=== PATIENT | male | born 1945 | race Caucasian/White ===

== ENCOUNTER 2017-03-26 13:00 | Emergency (ER) | payer MEDICARE, OTHER ==
[~2017-03-26] VITALS: Ht 177.8 cm; Wt 95.9 kg
[2017-03-26 13:03] VITALS: BP 202/91; PULSE 79; TEMP 97.6
== END 2017-03-26 14:31 | disposition left against medical advice (07) ==
LOC: COL.ER 13:00
DX: M25.551 Pain in right hip (principal); M25.552 Pain in left hip; W18.39XA Other fall on same level, initial encounter

== ENCOUNTER 2020-08-22 14:07 | Inpatient (IN) | payer OTHER ==
[~2020-08-22] VITALS: Ht 180.3 cm; Wt 82.2 kg
[2020-08-22] VITALS (195 sets, daily range): BP systolic 115; BP diastolic 59; PULSE 125; TEMP 97.8; O2SAT 84–98
[2020-08-22 14:36] LABS: BASO % 0.2 % (0.0-2.0); GRAN # 3.1 (1.4-6.5); GRAN % 75.8 % (42.2-75.2); HEMATOCRIT 40.5 % (42.0-52.0); HEMOGLOBIN 13.7 g/dl (13.5-18.0); LYMPH # 0.7 (1.2-3.4); LYMPH % 17.6 % (20.0-51.0); MEAN CELL VOLUME 85 fl (80.0-100.0); MEAN CORPUSCULAR HEMOGLOBIN 29 pg (27.0-31.0); MEAN CORPUSCULAR HGB CONC 34 g/dl (33.0-37.0); MONO # 0.3 (0.1-0.6); MONO % 6.2 % (1.7-9.3); PLATELET COUNT 141 K/mm3 (130-400); RED BLOOD COUNT 4.76 M/mm3 (4.20-5.60); REDCELL DISTRIBUTION WIDTH-CV 13.9 % (11.5-14.5)
[2020-08-22 14:43] LABS: ALBUMIN 3.9 gm/dL (3.5-5.0); BILIRUBIN,TOTAL 0.8 mg/dL (0.0-1.0); CALCIUM 8.3 mg/dL (8.4-10.2); CREATININE, serum 0.9 (0.66-1.25); POTASSIUM 3.8 mmol/L (3.4-5.0); TOTAL PROTEIN 7.3 gm/dL (6.4-8.2)
[2020-08-22 14:58] LABS: TROPONIN-I 0.056 ng/mL (0.000-0.035)
[2020-08-22 15:13] LABS: TSH w REFLEX 0.306 uIU/mL (0.465-4.680)
[2020-08-22] MEDS ORDERED: XANAX 1MG1 MG PO ×2 (16:17)
[2020-08-22] MEDS ORDERED: ZOCOR 80MG80 MG PO (16:20)
[2020-08-22] MEDS ORDERED: GLUCOTROL10 MG PO (16:20)
[2020-08-22] MEDS ORDERED: TOPROL XL100 MG PO (16:21)
[2020-08-22] MEDS ORDERED: PLAVIX 75MG TAB75 MG PO (16:21)
[2020-08-22] MEDS ORDERED: SYNTHROID0.112 MG/T PO (16:28)
[2020-08-22] MEDS ORDERED: ZESTRIL40 MG PO (16:29)
[2020-08-22] MEDS ORDERED: SURFAK 240240 MG/CAP PO (16:29)
[2020-08-22] MEDS ORDERED: GLUCOPHAGE1000 MG PO (16:30)
[2020-08-22] MEDS ORDERED: ASPIRIN 81M81 MG/TA2 PO (16:30)
[2020-08-22 17:18] LABS: COLLECTION METHOD CLEAN CATCH
[2020-08-22 17:23] LABS: MUCOUS Present /lpf; PH 5 (5-8); SQUAMOUS EPITHELIAL None Seen /hpf; URINE APPEARANCE Hazy; URINE BACTERIA Rare /hpf; URINE BILIRUBIN Negative (NEGATIVE); URINE BLOOD 1+ (NEGATIVE); URINE COLOR Yellow; URINE GLUCOSE 3+ (NEGATIVE); URINE KETONE 1+ (NEGATIVE); URINE LEUKOCYTE ESTERASE Negative (NEGATIVE); URINE NITRATE Negative (NEGATIVE); URINE PROTEIN(semi-quant) 2+ (NEGATIVE); URINE RBC 0-2 /hpf; URINE UROBILINOGEN Negative (NEGATIVE)
--- NOTE | 2020-08-22 17:31 | NUR ---
PT ADMITTED FROM ED WITH COVID AND AFIB. PT TRANSFERED TO BED. PTSHOWING AFIB 120, OTHER VSS. PT IS AXOX4 BUT VERY [place]ICH[place]. PT PLACED IN DROPLET/CONTACT ISOLATION. PT ORIENTED TO ROOM AND FLOOR. WILL CONTINUE TO MONITOR.
[2020-08-22 18:42] LABS: C-REACTIVE PROTEIN 2.5 mg/dL (0.0-0.9)
[2020-08-22 19:06] LABS: TROPONIN-I 0.079 ng/mL (0.000-0.035)
--- NOTE | 2020-08-22 19:15 | NUR ---
Received report from ARUA Fuentes.
--- NOTE | 2020-08-22 21:30 | NUR ---
Patient resting quietly in bed. Continues to receive 2L oxygen via nasal cannula, tolerating well with oxygen saturation > 95%. Patient does not appear labored or short of breath. Denies having any pain or discomfort. HR 115-120s in AFIB. Currently receiving cardizem drip at 15 mg/hr or 15mL/hr. Patient assisted in calling , Tash. No further needs noted at this time.
[2020-08-22] MEDS ORDERED: LOPRESSOR100 MG PO (22:07)
[2020-08-23] VITALS (507 sets, daily range): BP systolic 99–170; BP diastolic 56–98; PULSE 60–102; TEMP 97.1–98.6; O2SAT 70–100
--- NOTE | 2020-08-23 01:31 | NUR ---
Notified by medical records field technicianRaul, that patient converted to sinus rhythm at this time. Proceeded to notify RTKale, to obtain EKG to confirm.
[2020-08-23 06:40] LABS: HEMOGLOBIN 12.3 g/dl (13.5-18.0); MEAN CELL VOLUME 85 fl (80.0-100.0); MEAN CORPUSCULAR HEMOGLOBIN 28 pg (27.0-31.0); MEAN CORPUSCULAR HGB CONC 33 g/dl (33.0-37.0); MEAN PLATELET VOLUME 10.6 fl (7.4-10.4); PLATELET COUNT 124 K/mm3 (130-400); RED BLOOD COUNT 4.33 M/mm3 (4.20-5.60); REDCELL DISTRIBUTION WIDTH-CV 13.7 % (11.5-14.5)
[2020-08-23 06:43] LABS: HEMATOCRIT 36.9 % (42.0-52.0)
--- NOTE | 2020-08-23 07:26 | NUR ---
Report given to AURA Pettit.
[2020-08-23 07:28] LABS: BAND 2 % (0-10); BASOPHIL 1 % (0-2); NEUTROPHILS 68 % (42.0-75.2)
[2020-08-23 07:31] LABS: BURR CELLS 3+; OVALOCYTES 1+; POIKILOCYTOSIS 3+
[2020-08-23 07:32] LABS: LYMPHOCYTE 21 % (20.0-51.0); PLATELET ESTIMATE NORMAL (NORMAL)
[2020-08-23 07:43] LABS: CALCIUM 7.6 mg/dL (8.4-10.2); CREATININE, serum 0.87 (0.66-1.25); POTASSIUM 4.1 mmol/L (3.4-5.0)
[2020-08-23 07:59] LABS: MAGNESIUM 1.9 mg/dL (1.6-2.3)
--- NOTE | 2020-08-23 08:15 | NUR ---
PATIENT FOUND AWAKE AND ALERT IN BED, HARD OF HEARING. PATIENT DENIES ANY PAIN OR NAUSEA. HEART SOUNDS REGULAR, LUNG SOUNDS CLEAR, BOWEL SOUNDS AUDIBLE. URINE IN URINAL DARK MG IN COLOR. IV CARDIZEM INFUSING AT 5MG/HR WITHOUT DIFFICULTY. PATIENT IS NORMAL SINUS AT THIS TIME, VITAL SIGNS STABLE. CALL FREED WITHIN REACH, WILL CONTINUE TO MONITOR. DROPLET CONTACT PRECAUTIONS MAINTAINED.
--- NOTE | 2020-08-23 11:41 | NUR ---
First visit from the research professor of biostatistics. Speech Correction Assistant prayed for patient while standing outside of their door.
--- NOTE | 2020-08-23 11:54 | NUR ---
CARDIZEM DRIP STOPPED PER MD ORDERS. PATIENT CONTINUES TO BE IN NSR. BP 133/74. WILL MONITOR.
--- NOTE | 2020-08-23 12:48 | NUR ---
The patient is COVID positive. VIET attempted to contact the patient's room phone to discuss discharge plan. The patient did not answer. VIET then contacted the patient's daughter, Guerline Wayne (ph#[phone]), to complete intake. Guerline answered and gave her phone to the patient's , Tash. Tash reports that the best way to get ahold of her is to call Guerline's phone. The patient lives in [place] with Tash and Guerline. Tash reports that the patient was independent with ADLs, but since getting COVID, he has been needing help. He does not have any DME. Tash reports that the patient receives primary care from the [facility] and sees a psychiatrist there. She could not recall their name. VIET contacted the [facility]. The recruiter coordinator reports that the patient's primary care provider is Maday Costa on the Red Team. The patient receives his medications from [facility]. Tash reports that the patient also has Medicare, but they would prefer for the ID to be billed. The patient does not have a DPOA-HC. VIET asked the hospitalist for PT/OT to be ordered. SW to continue to follow. *Discharge plan: unknown at this time. Awaiting therapy recs*
--- NOTE | 2020-08-23 13:11 | NUR ---
PATIENT STATES HE WANTS TO LEAVE AMA, DR. PRETTY MADE AWARE, WILL COME SPEAK TO PATIENT.
--- NOTE | 2020-08-23 14:45 | NUR ---
PATIENT SPO2 IN 80'S WHILE ON NC AT 6L. RESPIRATORY MADE AWARE, STATE TO BUMP PATIENT UP TO 10L UNTIL SHE CAN COME WITH AIRVO.
--- NOTE | 2020-08-23 17:15 | NUR ---
PATIENT FOUND WITH AIRVO OFF, SPO2 IN 60'S DUSKY IN COLOR. PATIENT PLACED BACK ON AIRVO. UNABLE TO GET SPO2 ABOVE 80%. RESPIRATORY MADE AWARE TO ADJUST SETTINGS. HOSPITALIST AT BEDSIDE TO CONSULT DR. LUCIO. NEW ORDERS FOR PRECEDEX. WILL CONTINUE TO MONITOR.
--- NOTE | 2020-08-23 17:46 | NUR ---
PRECEDEX STARTED PER MD ORDERS. WILL MONITOR AND ADJUST NEEDED
--- NOTE | 2020-08-23 18:36 | NUR ---
PATIENT NOT ABLE TO MAINTAIN SPO2 WHILE ON AIRVO RESPIRATORY MADE AWARE.
--- NOTE | 2020-08-23 19:00 | NUR ---
RESPIRATORY AT BEDSIDE TO SWITCH TO BIPAP. PATIENT ONLY ABLE TO MAINTAIN SPO2 OF 85% AT THIS TIME.
--- NOTE | 2020-08-23 19:30 | NUR ---
Received report from AURA Pettit. All medications verified and all questions answered. RT at patient bedside putting on bipap for patient. Patient VSS with SPO2 resting at 91% at 100% FIO2 on bipap. Will resume care of patient at this time.
--- NOTE | 2020-08-23 20:00 | NUR ---
Unable to complete suicide risk assessment screen d/t patient prepping for intubation.
[2020-08-23 22:27] LABS: ARTERIAL BLD GAS O2 SATURATION 98.9 % (92-100); ARTERIAL BLD GAS TCO2 CT 22.8; ARTERIAL BLOOD GAS BASE EXCESS -3.6 (-2-2); ARTERIAL BLOOD GAS HCO3 21.6 meq/L (22-26); ARTERIAL BLOOD GAS PCO2 39.6 mmHg (35-45); ARTERIAL BLOOD GAS pH 7.36 (7.35-7.45)
--- NOTE | 2020-08-23 22:30 | NUR ---
This RN called and spoke with PRESTON Torres in regards to patient being placed on bipap with settings of 18/12 at 100% FiO2 and not satting above 91%. PA notified Dr. Velasco of patient condition and stated patient would need to be intubated. PA spoke with family and this RN verified consent with PA for intubation. This RN notified Anesthesia of need for intubation at 193. Began intubation at 1944 and patient was intubated at 1999. VS post intubation were 105/65 BVP, 78HR and 93% O2. CXR verfied placement of ET tube and breath sounds heard bilaterally by this RN and PA. During intubation process patient was given 100mcg of fentanyl, 2mg versed, 120mg of propofol, and 100mg of succs. Anesthesia provider placed ART line starting at 1999 and completed insertion of ART line at 2019. Dr. Joe placed right subclavian triple lumen central line which started at 2019 and was inserted by 2031. Patient was then starting on propofol gtt. During insertion of intubation, ART line, and central line placement BP were being recycled q15 mins. Upon completion of ET tube, central line and ART line pt BP readings were 60s/20s via ART line reading. No bolus' given per Dr. Velasco's order. Patient started on levophed at 2099. Levophed titrated per PA's orders while PA at bedside to increase pressures with MAP > 65. Propofol gtt started at 2029, fentanyl gtt started at 2199. VSS post intubation and administration of levophed, fentanyl and propofol.
[2020-08-24] VITALS (659 sets, daily range): BP systolic 96–181; BP diastolic 45–86; PULSE 32–77; TEMP 96.3–99; O2SAT 77–100
[2020-08-24 01:24] LABS: INR 1.6 (0.8-3.0); PROTHROMBIN TIME 17.3 SECONDS (9.7-12.8)
[2020-08-24 01:56] LABS: HEMATOCRIT 37.1 % (42.0-52.0); HEMOGLOBIN 12.4 g/dl (13.5-18.0); MEAN CELL VOLUME 84 fl (80.0-100.0); MEAN CORPUSCULAR HEMOGLOBIN 28 pg (27.0-31.0); MEAN CORPUSCULAR HGB CONC 33 g/dl (33.0-37.0); MEAN PLATELET VOLUME 10.5 fl (7.4-10.4); PLATELET COUNT 180 K/mm3 (130-400); RED BLOOD COUNT 4.42 M/mm3 (4.20-5.60); REDCELL DISTRIBUTION WIDTH-CV 13.8 % (11.5-14.5)
[2020-08-24 02:15] LABS: BAND 4 % (0-10); LYMPHOCYTE 8 % (20.0-51.0); NEUTROPHILS 81 % (42.0-75.2)
[2020-08-24 02:16] LABS: BURR CELLS 3+; OVALOCYTES 1+; PLATELET ESTIMATE NORMAL (NORMAL)
--- NOTE | 2020-08-24 03:46 | NUR ---
ABG OBTAINED AT 2230 AFTER PT ON VENTILATOR FOR AN HOUR. DUE TO HIGH P02 MAXIM CALLED AT 0047 VENT CHANGES MADE PEEP FROM 15 TO 14 AND FI02 FROM 100% TO 90%. PT TOLERATED CHANGES WELL WITH SP02 AT 100%.
--- NOTE | 2020-08-24 05:15 | NUR ---
Sedation vacation not attempted d/t patient being intubated for less than 24 hours.
[2020-08-24 05:19] LABS: BASO % 0.1 % (0.0-2.0); GRAN % 79.8 % (42.2-75.2); HEMATOCRIT 37.1 % (42.0-52.0); HEMOGLOBIN 12.4 g/dl (13.5-18.0); LYMPH % 13.4 % (20.0-51.0); MEAN CELL VOLUME 84 fl (80.0-100.0); MEAN CORPUSCULAR HEMOGLOBIN 28 pg (27.0-31.0); MEAN CORPUSCULAR HGB CONC 33 g/dl (33.0-37.0); MEAN PLATELET VOLUME 10.7 fl (7.4-10.4); MONO # 0.5 (0.1-0.6); MONO % 6.2 % (1.7-9.3); PLATELET COUNT 183 K/mm3 (130-400); RED BLOOD COUNT 4.43 M/mm3 (4.20-5.60); REDCELL DISTRIBUTION WIDTH-CV 13.9 % (11.5-14.5)
[2020-08-24 05:34] LABS: ARTERIAL BLD GAS O2 SATURATION 98.6 % (92-100); ARTERIAL BLD GAS TCO2 CT 17.2; ARTERIAL BLOOD GAS BASE EXCESS -7.8 (-2-2); ARTERIAL BLOOD GAS HCO3 16.3 meq/L (22-26); ARTERIAL BLOOD GAS PCO2 29.4 mmHg (35-45); ARTERIAL BLOOD GAS pH 7.36 (7.35-7.45)
[2020-08-24 05:35] LABS: ARTERIAL BLOOD GAS PO2 154.1 mmHg (80-100); CALCIUM 7.6 mg/dL (8.4-10.2); CREATININE, serum 0.99 (0.66-1.25)
[2020-08-24 05:44] LABS: C-REACTIVE PROTEIN 1.9 mg/dL (0.0-0.9)
--- NOTE | 2020-08-24 06:03 | NUR ---
PT NOT INTUBATED FOR MORE THAN 24 HOURS THEREFORE NO WEAN TRIAL WAS DONE. PT ON DOCUMENTED SETTINGS BRODY WELL WITH NO DISTRESS NOTED AT THIS TIME
--- NOTE | 2020-08-24 07:00 | NUR ---
PT INTUBATED. PT ON LEVO, PROP, FENT. PT IN ISOLATION. WILL CONITNUE TO TALIB.
[2020-08-24 11:03] LABS: MAGNESIUM 1.9 mg/dL (1.6-2.3); PHOSPHOROUS 3.5 mg/dL (2.5-4.5)
[2020-08-24 11:10] LABS: PRE ALBUMIN 9.1 mg/dL (17.6-36.0)
--- NOTE | 2020-08-24 11:36 | NUR ---
1015- PT BECAME BRADYCARDIC TO 30'S. BP ELEVATED TO 180'S. PULSE STILL PALPABLE. ALL SEDATION STOPPED AND LEVO STOPPED. CALLED AND NOTIFIED. PT'S HR RETURNED TO THE 50-60'S. BP IN THE 120'S. PT WAKES TO VOICE, ABLE TO FOLLOW COMMANDS, BEGAN TO COUGH AGAINST THE VENT. SEDATION RESTARTED AT A LOWER RATE. JAIME CHAVARRIA PAGED AND NOTIFIED OF ABOVE. SHE SPOKE WITH . ORDERS RECEIVED FOR AMIO DRIP. CLARIFIED WITH REGARDING AMIO WITH PT HAVING BRADYCARDIA. DR QUESADA STATES " HE IS OK WITH SR WITH A HEART RATE DOWN TO 30 LONG BP TOLERATES". WILL RUN AMIO DRIP AT 1MG/HR FOR SIX HOURS THEN DECREASE TO 0.5MG/HR. WILL CONTINUE TO MONTIOR CLOSELY.
--- NOTE | 2020-08-24 14:22 | NUR ---
The patient was intubated overnight and is on the mechanical vent. SW to continue to follow.
--- NOTE | 2020-08-24 15:45 | NUR ---
PT BRADYED DOWN TO 32. PTS BP ELEVATED TO THE 190'S. ALL SEDATION STOPPED. AMIO STOPPED. PULSES PALPABLE. ATROPINE GIVEN. HR UP TO THE 50'S. NOTIFIED AND ORDER FOR ATROPINE, AND HOLD AMIO. CALLED AND NOTIFIED. STATED TO NOT PRONE PT TODAY WILL READDRESS TOMORROW. AND OK TO HOLD AMIO. PAGED. STATES HE WOULD CALL . PLACED ORDER TO DC AMIO. PT AWAKE AND FOLLOWING COMMANDS. PT BEGAN TO COUGH AGAINST THE VENT. SEDATION RESTARTED AT LOW RATES. VSS. WILL CONTINUE TO MONITOR.
--- NOTE | 2020-08-24 19:23 | NUR ---
FENTANYL AND LEVOPHED CURRENTLY ON STANDBY MODE.
[2020-08-24 19:49] LABS: ARTERIAL BLD GAS TCO2 CT 22.4; ARTERIAL BLOOD GAS BASE EXCESS -2.6 (-2-2); ARTERIAL BLOOD GAS HCO3 21.4 meq/L (22-26); ARTERIAL BLOOD GAS PCO2 34.3 mmHg (35-45); ARTERIAL BLOOD GAS PO2 93.5 mmHg (80-100); ARTERIAL BLOOD GAS pH 7.41 (7.35-7.45)
--- NOTE | 2020-08-24 22:23 | NUR ---
PLACED FENTANYL ON STANDBY BECAUSE OF BLOOD PRESSURE AND ADEQUATE SEDATION ACHEIVED.
--- NOTE | 2020-08-24 23:03 | NUR ---
RECEIVED REPORT FROM AURA ORTIZ. PATIENT IS RESTING IN BED WITH EYES CLOSED. SEE GTT TITRATION FLOWSHEET. BANEGAS PATENT, DRAINING TO GRAVITY AND FREE OF KINKS AND DEPENDENT LOOPS. STILL SEDATED AND ON MECHANICAL VENTILATION. ARTERIAL LINE AND TRIPLE LUMEN CATHETER IN PLACE WITH BLOODY DRAINAGE.
--- NOTE | 2020-08-24 23:53 | NUR ---
LEVOPHED [id number] ON STANDBY BECAUSE OF ADEQUATE BLOOD PRESSURE.
[2020-08-25] VITALS (755 sets, daily range): BP systolic 111–174; BP diastolic 44–75; PULSE 54–97; TEMP 96.7–97.8; O2SAT 68–100
--- NOTE | 2020-08-25 05:00 | NUR ---
PATIENT HAS BEEN TOO AWAKE ON REGULAR SEDATION TO TRY VACATION THIS MORNING.
[2020-08-25 05:46] LABS: ARTERIAL BLOOD GAS BASE EXCESS -3.2 (-2-2); ARTERIAL BLOOD GAS HCO3 20.1 meq/L (22-26); ARTERIAL BLOOD GAS PCO2 30.2 mmHg (35-45); ARTERIAL BLOOD GAS PO2 81.5 mmHg (80-100); ARTERIAL BLOOD GAS pH 7.44 (7.35-7.45)
--- NOTE | 2020-08-25 08:00 | NUR ---
Patient opens eyes spontaneously; able to squeeze hands and wiggle toes on command. VS stable; will continue to monitor.
[2020-08-25 08:09] LABS: BASO % 0.2 % (0.0-2.0); GRAN # 4.5 (1.4-6.5); GRAN % 82.9 % (42.2-75.2); HEMOGLOBIN 11.3 g/dl (13.5-18.0); LYMPH # 0.6 (1.2-3.4); LYMPH % 11.4 % (20.0-51.0); MEAN CELL VOLUME 85 fl (80.0-100.0); MEAN CORPUSCULAR HEMOGLOBIN 28 pg (27.0-31.0); MEAN CORPUSCULAR HGB CONC 33 g/dl (33.0-37.0); MEAN PLATELET VOLUME 11.3 fl (7.4-10.4); MONO # 0.3 (0.1-0.6); MONO % 5.1 % (1.7-9.3); PLATELET COUNT 133 K/mm3 (130-400); RED BLOOD COUNT 4.03 M/mm3 (4.20-5.60); REDCELL DISTRIBUTION WIDTH-CV 14.1 % (11.5-14.5)
[2020-08-25 08:13] LABS: HEMATOCRIT 34.3 % (42.0-52.0)
[2020-08-25 08:16] LABS: ALBUMIN 2.5 gm/dL (3.5-5.0); BILIRUBIN,TOTAL 0.3 mg/dL (0.0-1.0); CALCIUM 7.8 mg/dL (8.4-10.2); CREATININE, serum 0.83 (0.66-1.25); POTASSIUM 3.5 mmol/L (3.4-5.0); TOTAL PROTEIN 5.2 gm/dL (6.4-8.2)
--- NOTE | 2020-08-25 14:53 | NUR ---
Notified by guitar technician that patient's heart rate was in the 140's. Patient alert and oriented no chest pain or shortness of breath. Reports slight dizziness but states he only "noticed" this after multiple staff asked him how he was doing and if he was feeling alright. BP stable. EKG to be obtained. Dr. Edwards notified. Will change metoprolol from BID to Q6hr. Goal for heart rate of 100 or less. No other changes at this time; will continue to monitor.
--- NOTE | 2020-08-25 15:00 | NUR ---
Hospitalist notified of patient's rhythm change. Updated on changes from cardiology. No further orders from the hospitalist.
[2020-08-25 16:22] LABS: ARTERIAL BLD GAS O2 SATURATION 94.6 % (92-100); ARTERIAL BLD GAS TCO2 CT 20.6; ARTERIAL BLOOD GAS BASE EXCESS -5.6 (-2-2); ARTERIAL BLOOD GAS HCO3 19.5 meq/L (22-26); ARTERIAL BLOOD GAS PCO2 36.9 mmHg (35-45); ARTERIAL BLOOD GAS PO2 81.3 mmHg (80-100); ARTERIAL BLOOD GAS pH 7.34 (7.35-7.45)
[2020-08-25 16:29] LABS: MAGNESIUM 2.3 mg/dL (1.6-2.3); PHOSPHOROUS 2.7 mg/dL (2.5-4.5); POTASSIUM 3.3 mmol/L (3.4-5.0)
--- NOTE | 2020-08-25 16:55 | NUR ---
Proned patient with 4 staff members; tolerated well; will continue to monitor.
--- NOTE | 2020-08-25 17:00 | NUR ---
Sedation vacation not performed due to being proned.
--- NOTE | 2020-08-25 20:00 | NUR ---
Assessment complete. Pt is on the ventilator. Pt is repositioned in bed and appears comfortable.
[2020-08-26] VITALS (743 sets, daily range): BP systolic 103–142; BP diastolic 51–85; PULSE 61–100; TEMP 97.5–98.1; O2SAT 88–100
--- NOTE | 2020-08-26 05:00 | NUR ---
No sedation vacation performed as the pt is prone.
[2020-08-26 05:01] LABS: ARTERIAL BLD GAS O2 SATURATION 96.8 % (92-100); ARTERIAL BLD GAS TCO2 CT 25.6; ARTERIAL BLOOD GAS BASE EXCESS -1.8 (-2-2); ARTERIAL BLOOD GAS HCO3 24.2 meq/L (22-26); ARTERIAL BLOOD GAS PCO2 46.2 mmHg (35-45); ARTERIAL BLOOD GAS PO2 95.6 mmHg (80-100); ARTERIAL BLOOD GAS pH 7.34 (7.35-7.45)
[2020-08-26 05:57] LABS: BASO % 0.1 % (0.0-2.0); GRAN # 6.4 (1.4-6.5); GRAN % 87.5 % (42.2-75.2); HEMOGLOBIN 10.7 g/dl (13.5-18.0); LYMPH # 0.5 (1.2-3.4); LYMPH % 7.4 % (20.0-51.0); MEAN CELL VOLUME 86 fl (80.0-100.0); MEAN CORPUSCULAR HEMOGLOBIN 29 pg (27.0-31.0); MEAN CORPUSCULAR HGB CONC 34 g/dl (33.0-37.0); MEAN PLATELET VOLUME 11.3 fl (7.4-10.4); MONO # 0.3 (0.1-0.6); MONO % 4.4 % (1.7-9.3); PLATELET COUNT 139 K/mm3 (130-400); REDCELL DISTRIBUTION WIDTH-CV 13.9 % (11.5-14.5)
[2020-08-26 05:59] LABS: HEMATOCRIT 31.7 % (42.0-52.0)
[2020-08-26 06:07] LABS: ALBUMIN 2.5 gm/dL (3.5-5.0); BILIRUBIN,TOTAL 0.4 mg/dL (0.0-1.0); CALCIUM 7.8 mg/dL (8.4-10.2); CREATININE, serum 0.85 (0.66-1.25); POTASSIUM 4.4 mmol/L (3.4-5.0); TOTAL PROTEIN 5.1 gm/dL (6.4-8.2)
--- NOTE | 2020-08-26 07:35 | NUR ---
Bedside shift report given to AURA Torres.
--- NOTE | 2020-08-26 07:35 | NUR ---
Patient supined this morning after report, tolerated well. CL dressing to right upper chest has large amount of bloody drainage. Dressing changed at this time, will monitor for drainage
--- NOTE | 2020-08-26 10:56 | NUR ---
Art line from left radial artery removed per Dr. Velasco's order. Sutures removed, art line removed without difficulty, pressure held for five minutes; no bleeding noted at that time, pressure dressing applied. Patient tolerated well.
--- NOTE | 2020-08-26 12:15 | NUR ---
Patient opens eyes with stimulation. Once fully awake, does follow commands and squeezes this RN's hands when asked to but quickly falls back to sleep.
--- NOTE | 2020-08-26 17:00 | NUR ---
CL dressing to right upper chest saturated with blood. Dressing changed and sterile gauze pressure dressing placed prior to proning patient. Will monitor for increased drainage while prone.
--- NOTE | 2020-08-26 17:15 | NUR ---
No sedation vacation at this time as this RN needed to increase Propofol for proning. Patient was restless before increasing; but tolerted proning without difficulty.
[2020-08-27] VITALS (806 sets, daily range): BP systolic 106–135; BP diastolic 57–72; PULSE 53–106; TEMP 96.1–97.9; O2SAT 39–100
--- NOTE | 2020-08-27 06:25 | NUR ---
NO SEDATION VACATION PATIENTR IS CURRENTLY PRONE
[2020-08-27 06:27] LABS: BASO % 0.1 % (0.0-2.0); GRAN # 6.3 (1.4-6.5); GRAN % 86.5 % (42.2-75.2); HEMOGLOBIN 10.6 g/dl (13.5-18.0); LYMPH # 0.5 (1.2-3.4); LYMPH % 6.9 % (20.0-51.0); MEAN CELL VOLUME 85 fl (80.0-100.0); MEAN CORPUSCULAR HEMOGLOBIN 28 pg (27.0-31.0); MEAN CORPUSCULAR HGB CONC 33 g/dl (33.0-37.0); MEAN PLATELET VOLUME 11.1 fl (7.4-10.4); MONO # 0.4 (0.1-0.6); MONO % 5.5 % (1.7-9.3); PLATELET COUNT 174 K/mm3 (130-400); RED BLOOD COUNT 3.76 M/mm3 (4.20-5.60); REDCELL DISTRIBUTION WIDTH-CV 14.2 % (11.5-14.5)
[2020-08-27 06:38] LABS: CALCIUM 7.8 mg/dL (8.4-10.2); CREATININE, serum 0.73 (0.66-1.25); POTASSIUM 4.8 mmol/L (3.4-5.0)
--- NOTE | 2020-08-27 07:40 | NUR ---
DURING UNPRONING OF PT ET TUBE BECAME DISLODGED. PT BAGGED BY RT UNTIL ER MD COULD COME TO REINTUBATE. PT BACK ON VENT W/O FURTHER INCIDENT.
--- NOTE | 2020-08-27 08:12 | NUR ---
MARIA DE JESUS AT BEDSIDE, WILL BE INCREASING LEVEMIR TO 35 UNITS BID AND GIVING A DOSE OF LASIX.
--- NOTE | 2020-08-27 08:35 | NUR ---
DR. LUCIO AT BEDSIDE. ORDERS GIVEN REGARDING VENT SETTINGS AND BLOOD SUGARS.
[2020-08-27 10:05] LABS: ARTERIAL BLD GAS O2 SATURATION 94.6 % (92-100); ARTERIAL BLOOD GAS BASE EXCESS -0.6 (-2-2); ARTERIAL BLOOD GAS HCO3 24.6 meq/L (22-26); ARTERIAL BLOOD GAS PCO2 42.9 mmHg (35-45); ARTERIAL BLOOD GAS PO2 75.9 mmHg (80-100); ARTERIAL BLOOD GAS pH 7.38 (7.35-7.45)
--- NOTE | 2020-08-27 10:50 | NUR ---
During turning patient to supine after being in the prone position. ET tube was dislodged. 0733- Dr. Carranza from ED to room to reintubate. [address] Color change noted. lung sounds present. xray called for et tube placement confirmation.
--- NOTE | 2020-08-27 17:00 | NUR ---
PRONING PATIENT AND NOT DOING SEDATION VACATION TODAY.
[2020-08-28] VITALS (692 sets, daily range): BP systolic 107–163; BP diastolic 59–92; PULSE 64–150; TEMP 97.3–98.2; O2SAT 76–100
[2020-08-28 05:02] LABS: ARTERIAL BLD GAS O2 SATURATION 95.9 % (92-100); ARTERIAL BLD GAS TCO2 CT 29.7; ARTERIAL BLOOD GAS BASE EXCESS 2.2 (-2-2); ARTERIAL BLOOD GAS HCO3 28.2 meq/L (22-26); ARTERIAL BLOOD GAS PCO2 50.4 mmHg (35-45); ARTERIAL BLOOD GAS PO2 88.8 mmHg (80-100); ARTERIAL BLOOD GAS pH 7.37 (7.35-7.45)
[2020-08-28 05:30] LABS: HEMOGLOBIN 10.3 g/dl (13.5-18.0); MEAN CELL VOLUME 87 fl (80.0-100.0); MEAN CORPUSCULAR HEMOGLOBIN 28 pg (27.0-31.0); MEAN CORPUSCULAR HGB CONC 32 g/dl (33.0-37.0); MEAN PLATELET VOLUME 10.9 fl (7.4-10.4); PLATELET COUNT 173 K/mm3 (130-400); RED BLOOD COUNT 3.66 M/mm3 (4.20-5.60); REDCELL DISTRIBUTION WIDTH-CV 14.3 % (11.5-14.5)
[2020-08-28 05:42] LABS: ALBUMIN 2.5 gm/dL (3.5-5.0); BILIRUBIN,TOTAL 0.3 mg/dL (0.0-1.0); CALCIUM 7.8 mg/dL (8.4-10.2); CREATININE, serum 0.69 (0.66-1.25); MAGNESIUM 2.7 mg/dL (1.6-2.3); PHOSPHOROUS 3.8 mg/dL (2.5-4.5); POTASSIUM 4.2 mmol/L (3.4-5.0); TOTAL PROTEIN 5.2 gm/dL (6.4-8.2)
[2020-08-28 05:45] LABS: HEMATOCRIT 31.8 % (42.0-52.0)
[2020-08-28 06:29] LABS: LYMPHOCYTE 8 % (20.0-51.0); NEUTROPHILS 87 % (42.0-75.2); PLATELET ESTIMATE NORMAL (NORMAL)
--- NOTE | 2020-08-28 06:55 | NUR ---
PT FREQUENTLY WOKE UP ON SEDATION. CALLED MAXIM ABOUT PT RESTLESSNESS INTERMITTENTLY. IV ATIAN WAS GIVEN ONE TIME AND THE NEXT OCCURANCE, WAS TOLD TO INCREASE FENT ABOVE 200MCG/HR NEEDED TO KEEP PT COMFORTABLE DURING REPOSITIONING WHICH WAS DONE. PT DID NOT FOLLOW COMMANDS BUT SAT UP UPPER BODY AND WAS PURPOSEFUL.
--- NOTE | 2020-08-28 10:12 | NUR ---
0730: pt tolerated turn from prone to supine without difficulty or complications 0751: Propofol and Fentanyl stopped per MD Rod who is on unit 0830: Precedex initiated at 0.5mcg/kg/hr d/t RASS: +3, tachycardia (140-160) and hypertension 0918: RASS remains +3, moving all extremities, making attempts to grasp ETT, pt is unable to follow commands/diretions or make eye contact. BP: 192/62, HR:157, coughing against ventilator causing high priority alarms and desaturation d/t coughing 0940: pt resedated for saftey with specific dosages per MD Rod
--- NOTE | 2020-08-28 13:32 | NUR ---
The patient remains on the vent. They may tentatively try and extubate the patient today. SW to continue to follow.
--- NOTE | 2020-08-28 22:03 | NUR ---
PATIENT RESPONDS TO VOICE STIMULI/ ROOM COMPLETELY LIT/ DOES NOT TRACK OR FOLLOW COMMANDS/ WILL RESPOND TO PAINFUL STIMULI/
[2020-08-29] VITALS (731 sets, daily range): BP systolic 115–178; BP diastolic 63–93; PULSE 62–135; TEMP 97.1–98.1; O2SAT 82–100
--- NOTE | 2020-08-29 00:19 | NUR ---
SHEET LIFT ROLLED PATIENT TO THE RIGHT, PATIENT BECAME AWAKE AND HAD MOVEMENT OF BOTH UPPER EXTREMITIES TOWARDS AWAY FROM BODY AND DOWN NO REACHING FOR MOUTH EASILY CALMED BY STAFFS VOICE, EYES OPEN DURING ENTIRE EPISODE..
[2020-08-29 05:02] LABS: HEMOGLOBIN 10.8 g/dl (13.5-18.0); MEAN CELL VOLUME 87 fl (80.0-100.0); MEAN CORPUSCULAR HEMOGLOBIN 28 pg (27.0-31.0); MEAN CORPUSCULAR HGB CONC 33 g/dl (33.0-37.0); MEAN PLATELET VOLUME 10.7 fl (7.4-10.4); PLATELET COUNT 205 K/mm3 (130-400); RED BLOOD COUNT 3.82 M/mm3 (4.20-5.60); REDCELL DISTRIBUTION WIDTH-CV 14.4 % (11.5-14.5)
[2020-08-29 05:04] LABS: HEMATOCRIT 33.1 % (42.0-52.0)
[2020-08-29 05:21] LABS: CALCIUM 7.7 mg/dL (8.4-10.2); CREATININE, serum 0.69 (0.66-1.25); POTASSIUM 4.5 mmol/L (3.4-5.0)
--- NOTE | 2020-08-29 05:27 | NUR ---
PATIENT AWAKENS EASILY HEART RATE IN UPPER 60S/ B/P STABLE 160 SYSTOLIC/ AWAITING WEANING TRIAL
[2020-08-29 05:57] LABS: ARTERIAL BLD GAS O2 SATURATION 93.1 % (92-100); ARTERIAL BLD GAS TCO2 CT 30.4; ARTERIAL BLOOD GAS BASE EXCESS 5.1 (-2-2); ARTERIAL BLOOD GAS HCO3 29.2 meq/L (22-26); ARTERIAL BLOOD GAS PO2 64.6 mmHg (80-100); ARTERIAL BLOOD GAS pH 7.47 (7.35-7.45)
[2020-08-29 06:25] LABS: BAND 1 % (0-10); HYPOCHROMIA 1+; LYMPHOCYTE 17 % (20.0-51.0); NEUTROPHILS 76 % (42.0-75.2); OVALOCYTES 2+; PLATELET ESTIMATE NORMAL (NORMAL); SCHISTOCYTES 1+
--- NOTE | 2020-08-29 06:44 | NUR ---
vacation sedation performed this am, went about average, patient became agitated, unable to follow simple coomands,, can open eyes to natural stimuli, however cannot follow voice, pulse rates reached 130, decided to stop vacation now back to original doses of fentanyl 100 mcqs/ hr. versed 5 mg/hr , and precedex 0.6 mcqs/kg/hr
--- NOTE | 2020-08-29 07:00 | NUR ---
RECEIVED REPORT FROM AURA MENDOZA. PT RESTING EASILY ON CURRENT VENT SETTINGS: TV 430, PEEP 5, RR 22, FIO2 40%. FC PATENT AND DRAINING TO GRAVITY. OGT 65 AT LIPS WITH TF INFUSING AT 50ML/HR. SEE GTT FLOWSHEET. VSS. LEATHER PIECE INSPECTOR IN PLACE.
--- NOTE | 2020-08-29 09:15 | NUR ---
SPOKE WITH DR LUCIO ABOUT POC. PHYSICIAN REQUESTS VERSED TO BE OFF AT THIS TIME AND START DECREASING FENTANYL GTT BUT OK TO KEEP PRECEDEX GTT ON EVEN POT EXTUBATION. PROVIDER REQUESTS ABG IN ABOUT 20 MINS, RT NOTIFIED. AND THEN WHEN PT IS AWAKE ENOUGH AND IS AGITATED TO EXTUBATE PT THEN TWO HOURS AFTER EXTUBATION TO OBTAIN ABG. PROVIDER STATES TO NOTIFY HIM WE CONTINUE THROUGH THIS PROCESS. SEE GTT FLOWSHEET.
[2020-08-29 09:49] LABS: ARTERIAL BLD GAS O2 SATURATION 91.8 % (92-100); ARTERIAL BLD GAS TCO2 CT 29.3; ARTERIAL BLOOD GAS BASE EXCESS 3.9 (-2-2); ARTERIAL BLOOD GAS PCO2 40.4 mmHg (35-45); ARTERIAL BLOOD GAS PO2 62.4 mmHg (80-100); ARTERIAL BLOOD GAS pH 7.46 (7.35-7.45)
--- NOTE | 2020-08-29 09:55 | NUR ---
ABG RESULTS GIVEN TO DR LUCIO. MADELYN STATES TO STOP FENTANYL GTT NOW AND TRY TO EXTUBATE BY 1030 IF PT IS AGITATED AND AWAKE ENOUGH. RT AWARE OF POC.
--- NOTE | 2020-08-29 10:44 | NUR ---
PT EXTUBATED BY RT AND RN WITH OGT PULLED AT THE SAME TIME. WEAK COUGH NOTED. PT PLACED ON 10L OM. HR 140s AND POX 88-92% RR 29-35. CALLED DR LUCIO AT 1048, NO ANSWER. DR LUCIO CALLED BACK AT 1052. UPDATED PROVIDER ON RT AND RN NOTED SOME STRIDOR SOUNDS AUSCULTATED IN THROAT. PROVIDER STATES D/T HR BEING HIGH DO NOT GIVE RACEMIC EPI, MONITOR PT FOR 30MINS REDRAW ABG AND IF VS HAVE NOT IMRPOVED THEN CALL ANESTHESIA AND REINTUBATE. WILL MONITOR CLOSELY.
[2020-08-29 11:46] LABS: ARTERIAL BLD GAS O2 SATURATION 88.1 % (92-100); ARTERIAL BLD GAS TCO2 CT 26.6; ARTERIAL BLOOD GAS HCO3 25.7 meq/L (22-26); ARTERIAL BLOOD GAS PCO2 29.7 mmHg (35-45); ARTERIAL BLOOD GAS PO2 50.2 mmHg (80-100); ARTERIAL BLOOD GAS pH 7.56 (7.35-7.45)
--- NOTE | 2020-08-29 11:56 | NUR ---
NOTIFIED DR LUCIO OF ABG RESULTS AND CURRENT VS. PHYSICIAN REQUESTS ANESTHESIA TO BE NOTIFIED TO REINTUBATE PT. AND TO PLACED TF, IV GTTs AND VENT SETTINGS BACK TO PREVIOUS SETTINGS. BUT DECREASE RR 20. RT AWARE.
--- NOTE | 2020-08-29 12:23 | NUR ---
PT REINTUBATED AT THIS TIME BY AILEEN NASH AND HALINA RT AND THIS RN. PT PLACED BACK ON PREVIOUS SEDATION AND VENT SETTINGS WITH DECREASE IN RR TO 20. RESTRAINTS BACK ON AT THIS TIME. SEE GTT FLOWSHEET.
--- NOTE | 2020-08-29 13:39 | NUR ---
PT EXTUBATED AT 1044, REINTUBATED DUE TO TACHYCARDIA AND HYPOXIA.
--- NOTE | 2020-08-29 14:57 | NUR ---
UPDATED DR LUCIO ON PT'S CURRENT VS AND VENT SETTINGS. PROVIDER STATES TO BACK OFF THE PRECEDEX GTT IF POSSIBLE TO USE MORE LATER WITH EXTUBATION TRIAL AGAIN AT A LATER DATE. PROVIDER REQUESTS ABG TO BE DONE TO SEE IF CHANGES NEED TO BE MADE TO THE VENT SETTINGS. SPOKE WITH DR LUCIO ABOUT DR MOYER QUESTIONING IF A CT PE NEEDS TO BE COMPLETED. DR LUCIO STATES HE WILL REVIEW THE CHART SOME MORE AND GET BACK TO ME. RT NOTIFIED FOR ABG. DR LUCIO STATES TO LET HIM KNOW OF THE ABG RESULTS.
[2020-08-29 15:35] LABS: ARTERIAL BLD GAS O2 SATURATION 93.2 % (92-100); ARTERIAL BLD GAS TCO2 CT 30.9; ARTERIAL BLOOD GAS BASE EXCESS 5.7 (-2-2); ARTERIAL BLOOD GAS HCO3 29.6 meq/L (22-26); ARTERIAL BLOOD GAS PCO2 40.5 mmHg (35-45); ARTERIAL BLOOD GAS PO2 64.3 mmHg (80-100); ARTERIAL BLOOD GAS pH 7.48 (7.35-7.45)
--- NOTE | 2020-08-29 15:43 | NUR ---
NOTIFIED DR LUCIO OF ABG RESULTS. STATES TO DECREASE RR TO 18, INCREASE PEEP TO [address] PE PRTOCOL. RT NOTIFIED OF CHANGES.
--- NOTE | 2020-08-29 16:50 | NUR ---
Pt tolerated trip to CT and back without complications - VSS.
--- NOTE | 2020-08-29 17:01 | NUR ---
DR LUCIO AT BEDSIDE FOR ASSESSMENT AND DISUCSSING POC AND LOOKING AT CT SCAN. DR LUCIO CALLS PT'S DAUGHTER USMAN TO UPDATE AND DISCUSS POC WITH HER.
[2020-08-29 19:55] LABS: ARTERIAL BLD GAS O2 SATURATION 96.9 % (92-100); ARTERIAL BLD GAS TCO2 CT 28.1; ARTERIAL BLOOD GAS PCO2 35.3 mmHg (35-45); ARTERIAL BLOOD GAS PO2 88.8 mmHg (80-100)
[2020-08-29 23:50] LABS: ARTERIAL BLD GAS O2 SATURATION 96.6 % (92-100); ARTERIAL BLD GAS TCO2 CT 30.7; ARTERIAL BLOOD GAS BASE EXCESS 5.9 (-2-2); ARTERIAL BLOOD GAS HCO3 29.5 meq/L (22-26)
[2020-08-30] VITALS (674 sets, daily range): BP systolic 133–180; BP diastolic 74–102; PULSE 82–131; TEMP 97.6–99.1; O2SAT 90–100
[2020-08-30 05:05] LABS: HEMOGLOBIN 10.5 g/dl (13.5-18.0); MEAN CELL VOLUME 88 fl (80.0-100.0); MEAN CORPUSCULAR HEMOGLOBIN 28 pg (27.0-31.0); MEAN CORPUSCULAR HGB CONC 32 g/dl (33.0-37.0); PLATELET COUNT 225 K/mm3 (130-400); RED BLOOD COUNT 3.71 M/mm3 (4.20-5.60); REDCELL DISTRIBUTION WIDTH-CV 14.8 % (11.5-14.5)
[2020-08-30 05:08] LABS: HEMATOCRIT 32.5 % (42.0-52.0)
--- NOTE | 2020-08-30 05:15 | NUR ---
patient received bath and oral care, became aggitated resulting in increased hr and b/p,increased fentanyl, versed and precedex drips along with bolus dose of cardizem per orders will continue to monitor
[2020-08-30 05:17] LABS: CREATININE, serum 0.8 (0.66-1.25); POTASSIUM 4.5 mmol/L (3.4-5.0)
[2020-08-30 05:34] LABS: ANISOCYTOSIS 2+; BAND 1 % (0-10); BURR CELLS 1+; EOSINOPHIL 4 % (0-4); HYPOCHROMIA 1+; LYMPHOCYTE 12 % (20.0-51.0); METAMYELOCYTE 2 % (0-0); NEUTROPHILS 71 % (42.0-75.2); OVALOCYTES 1+; PLATELET ESTIMATE NORMAL (NORMAL); SCHISTOCYTES 1+
[2020-08-30 05:56] LABS: ARTERIAL BLD GAS O2 SATURATION 95.7 % (92-100); ARTERIAL BLD GAS TCO2 CT 30.2; ARTERIAL BLOOD GAS BASE EXCESS 5.5 (-2-2); ARTERIAL BLOOD GAS PCO2 38.2 mmHg (35-45); ARTERIAL BLOOD GAS PO2 75.4 mmHg (80-100)
--- NOTE | 2020-08-30 10:32 | NUR ---
VIET collaborated with the patient's RN. Dr. Velasco has scheduled a family meeting for the patient on Friday at 0830 to discuss trach and peg vs hospice.
[2020-08-31] VITALS (649 sets, daily range): BP systolic 118–141; BP diastolic 60–71; PULSE 60–86; TEMP 97.7–98; O2SAT 90–100
[2020-08-31 04:26] LABS: ARTERIAL BLD GAS TCO2 CT 24.9; ARTERIAL BLOOD GAS BASE EXCESS -1.9 (-2-2); ARTERIAL BLOOD GAS HCO3 23.6 meq/L (22-26); ARTERIAL BLOOD GAS PCO2 42.8 mmHg (35-45); ARTERIAL BLOOD GAS pH 7.36 (7.35-7.45)
[2020-08-31 04:27] LABS: ARTERIAL BLOOD GAS PO2 125.6 mmHg (80-100)
--- NOTE | 2020-08-31 05:46 | NUR ---
PT SEDATION NOT REDUCED DUE TO PREPPING FOR TURNING PT BACK TO SUPINE POSITION THIS AM AND LONG RECOVERY TO STABILIZE HR AND PT ANXIETY WHEN WOKEN UP. PT ALSO PRONED AND TRIES TO SIT UP AND TURN HEAD WITH SEDATION LOWERED. PT NOTED TO BE PURPOSEFUL AND LOCALIZES PAIN. HE ALSO OVER BREATHS VENT. PUPILS ARE SLUGGISH AND CORNEALS REACTIVE.
--- NOTE | 2020-08-31 06:15 | NUR ---
PT HR INTO 100S WHEN STIMULATED. UNABLE TO GET PT TO FOLLOW COMMANDS BUT IS CLEARLY PURPOSEFUL AND STRONG. TRIES TO SIT UP AND TURN HEAD WHEN SEDATION LOWERED. TF TOLERATED WELL WITH RESIDUALS BETWEEN 30-140. BLOOD GLUCOSE REMAINS HIGH IN 200S WITH LONG AND SHORT ACTING INSULIN SCHEDULED. DAUGHTER UPDATED. WILL PASS ON THAT SHE IS NEEDING TO KNOW TIME FOR FAMILY MEETING AND PICC PLACEMENT IF POSSIBLE. NO VENT CHANGES ALTHOUGH AM ABG SHOWED HIGH PO2. PT RESTING COMFORTABLY IN BED AT THIS TIME.
[2020-08-31 07:00] LABS: MEAN CELL VOLUME 90 fl (80.0-100.0); MEAN CORPUSCULAR HGB CONC 31 g/dl (33.0-37.0); MEAN PLATELET VOLUME 11.3 fl (7.4-10.4); PLATELET COUNT 224 K/mm3 (130-400); RED BLOOD COUNT 3.35 M/mm3 (4.20-5.60); REDCELL DISTRIBUTION WIDTH-CV 14.5 % (11.5-14.5)
[2020-08-31 07:03] LABS: HEMATOCRIT 30.3 % (42.0-52.0); HEMOGLOBIN 9.5 g/dl (13.5-18.0); MEAN CORPUSCULAR HEMOGLOBIN 28 pg (27.0-31.0)
[2020-08-31 07:11] LABS: CALCIUM 8.1 mg/dL (8.4-10.2); CREATININE, serum 0.82 (0.66-1.25); POTASSIUM 5.3 mmol/L (3.4-5.0)
[2020-08-31 07:52] LABS: BAND 2 % (0-10); BURR CELLS 1+; LYMPHOCYTE 4 % (20.0-51.0); MYELOCYTE 2 % (0-0); NEUTROPHILS 88 % (42.0-75.2); OVALOCYTES 2+; PLATELET ESTIMATE NORMAL (NORMAL); TARGET CELLS 1+
--- NOTE | 2020-08-31 10:13 | NUR ---
VIET collaborated with the patient's RN. The patient's , Tash, and son-in-law, Mert, will be here tomorrow at 0830 for the family meeting. They are leaning towards the trach and peg. VIET contacted and faxed a referral to Kenn at [facility]. Awaiting screen.
--- NOTE | 2020-08-31 11:33 | NUR ---
Kenn, at [facility], reports that they can clinically accept the patient. He states that he will check with the [facility] to see if they would approve a stay there. If not, he states that we would need to look into the patient using his Medicare.
--- NOTE | 2020-08-31 13:33 | NUR ---
Kenn, at [facility], reports that the patient is 100% VA service connected and that the VA would cover a stay at [facility]. He reports that the patient's team at the [place] does require a referral for their doctor to approve. VIET attempted to contact AURA Lopez, with Dr. Costa at [facility] Red team. VIET left her a voicemail. VIET obtained the Red Team's fax number from the receptionist scheduler. VIET faxed the referral to the [facility] Red Team.
--- NOTE | 2020-08-31 13:50 | NUR ---
Chato, RN with the [facility], returned VIET's phone call. VIET updated him about [facility]. Chato is unfamiliar with this process, but states that he will update the patient's provider and get their social work involved and then contact this VIET back.
--- NOTE | 2020-08-31 16:31 | NUR ---
Kenn, at [facility], provided SW with Ronel Abbott's phone number, ext. [phone]. Kenn reports that he believes that she is an manager winter at the [facility] and helps with getting stays authorized, like [facility]. He states that she may be able to help get the stay authorized if the [facility] Red team does not. Kenn reports that Ronel leaves work at 1530.
--- NOTE | 2020-08-31 17:00 | NUR ---
Sedation vacation to be completed in the morning before family meeting at 0830 per MD Rod
--- NOTE | 2020-08-31 19:10 | NUR ---
Received report from AURA Escalera. Patient resting quietly in bed. Continues on ventilator; tolerating well. All vitals within normal limits. [facility] at [facility]. Bed in lowest position, call light within reach, and all alarms are on. No further needs noted at this time.
[2020-09-01] VITALS (763 sets, daily range): BP systolic 123–188; BP diastolic 54–96; PULSE 59–135; TEMP 97.4–98.6; O2SAT 78–100
[2020-09-01 05:14] LABS: MEAN CELL VOLUME 92 fl (80.0-100.0); MEAN CORPUSCULAR HGB CONC 32 g/dl (33.0-37.0); PLATELET COUNT 206 K/mm3 (130-400); RED BLOOD COUNT 3.14 M/mm3 (4.20-5.60); REDCELL DISTRIBUTION WIDTH-CV 14.6 % (11.5-14.5)
[2020-09-01 05:20] LABS: HEMATOCRIT 28.8 % (42.0-52.0); HEMOGLOBIN 9.1 g/dl (13.5-18.0); MEAN CORPUSCULAR HEMOGLOBIN 29 pg (27.0-31.0)
[2020-09-01 05:25] LABS: CALCIUM 8.3 mg/dL (8.4-10.2); CREATININE, serum 0.91 (0.66-1.25); POTASSIUM 5.3 mmol/L (3.4-5.0)
[2020-09-01 06:00] LABS: BAND 6 % (0-10); LYMPHOCYTE 6 % (20.0-51.0); MYELOCYTE 1 % (0-0); NEUTROPHILS 80 % (42.0-75.2); PLATELET ESTIMATE NORMAL (NORMAL)
--- NOTE | 2020-09-01 07:00 | NUR ---
PT INTUBATED AND SEDATED. PT'S VSS. PT OPENS EYE SPONTANEOUSLY BUT DOES NOT FOLLOW COMMANDS. WILL CONTINUE TO MONITOR.
--- NOTE | 2020-09-01 09:30 | NUR ---
SEDATION CUT PER AND ATTEMPT CPAP TRIAL. WILL CONTINUE TO MONTIOR.
--- NOTE | 2020-09-01 09:34 | NUR ---
funeral workers attended family meeting with spouse, son in law, Mert, Dr Velasco, Dr Travis and Kenn with [facility]. Family questions were answered and plan continues to transfer patient to [facility] when stablized. Family verbalizes understanding that [facility] will most likely have a Cook bed available next week and that patient will transfer via ambulance. Worker left message with Ronel Rosa, [place] patient services coordinator regarding continued efforts to obtain [place] authorization for transfer. Addie and Kenn provided emotional support to family. Due to today being a Federal holiday, we are unsure if Ronel will be accessible this date.
--- NOTE | 2020-09-01 10:41 | NUR ---
NOTIFIED OF CONSULT. STATES HE WILL COORDINATE WITH ENT.
--- NOTE | 2020-09-01 17:00 | NUR ---
SEE AM NOTE FOR PREVIOUS SEDATION VACATION. PT ABLE TO OPEN EYES TO VOICE BUT DOES NOT FOLLOW COMMANDS. PT BECOMES TACHYCARDIC AND HYPERTNESIVE WITH LOWER SEDATION AT THIS TIME. WILL CONTINUE TO MONITOR.
[2020-09-02] VITALS (827 sets, daily range): BP systolic 104–153; BP diastolic 56–86; PULSE 77–134; TEMP 98–98.4; O2SAT 83–100
[2020-09-02 04:07] LABS: MEAN CELL VOLUME 89 fl (80.0-100.0); MEAN CORPUSCULAR HGB CONC 31 g/dl (33.0-37.0); MEAN PLATELET VOLUME 11.1 fl (7.4-10.4); PLATELET COUNT 224 K/mm3 (130-400); RED BLOOD COUNT 3.43 M/mm3 (4.20-5.60); REDCELL DISTRIBUTION WIDTH-CV 14.5 % (11.5-14.5)
[2020-09-02 04:11] LABS: HEMATOCRIT 30.5 % (42.0-52.0); HEMOGLOBIN 9.5 g/dl (13.5-18.0); MEAN CORPUSCULAR HEMOGLOBIN 28 pg (27.0-31.0)
[2020-09-02 04:21] LABS: CALCIUM 8.1 mg/dL (8.4-10.2); CREATININE, serum 0.9 (0.66-1.25); POTASSIUM 4.4 mmol/L (3.4-5.0)
[2020-09-02 05:19] LABS: ARTERIAL BLD GAS O2 SATURATION 91.7 % (92-100); ARTERIAL BLD GAS TCO2 CT 30.8; ARTERIAL BLOOD GAS BASE EXCESS 4.9 (-2-2); ARTERIAL BLOOD GAS HCO3 29.5 meq/L (22-26); ARTERIAL BLOOD GAS PCO2 43.6 mmHg (35-45); ARTERIAL BLOOD GAS PO2 63.3 mmHg (80-100); ARTERIAL BLOOD GAS pH 7.45 (7.35-7.45)
[2020-09-02 05:23] LABS: BAND 4 % (0-10); LYMPHOCYTE 16 % (20.0-51.0); METAMYELOCYTE 1 % (0-0); MYELOCYTE 1 % (0-0); NEUTROPHILS 73 % (42.0-75.2); PLATELET ESTIMATE NORMAL (NORMAL)
--- NOTE | 2020-09-02 07:00 | NUR ---
PT INTUBATED AND ON HIS SEDATION VACATION. PT BECOMING TACHYCARDIC AND FIGHTING VENT. WILL INCREASE SEDATION AND CONTINUE TO MONITOR.
--- NOTE | 2020-09-02 07:37 | NUR ---
PT WAS SWITCHED BACK TO SEDATION DUE TO TACHYCARDIA, UNABLE TO PERFORM WEANING TRIAL
--- NOTE | 2020-09-02 11:11 | NUR ---
NOTIFIED OF CONSULT FOR TRACH. STATES PLAN FOR FRIDAY AROUND LUNCH, AND REQUEST PT BE RESWABBED FOR COVID.
--- NOTE | 2020-09-02 12:09 | NUR ---
ATTEMPTED TO CALL ENT OFFICE TO NOTIFY OF POSITIVE COVID RESULTS. STAGE ELECTRICIAN UNREACHABLE, MESSAGE LEFT.
--- NOTE | 2020-09-02 13:00 | NUR ---
NOTIFIED OF PTS POSITIVE COVID SWABS. STATES WE WILL HOLD OFF ON TRACH AND RESWAB PT SOME TIME NEXT WEEK. NOTIFIED OF ABOVE AND WILL HOLD OFF ON TRACH WELL.
--- NOTE | 2020-09-02 17:00 | NUR ---
NO CHANGES MADE TO SEDATION AT THIS TIME. THROUGH OUT THE DAY SEDATION HAD TO BE CHANGED AND PRECEDEX ADDED D/T PT BECOMING TACHYPNIC AND TACHYCARDIC. PT OPENES EYES TO VOICE BUT DOES NOT FOLLOW COMMANDS.
[2020-09-03] VITALS (836 sets, daily range): BP systolic 94–1471; BP diastolic 49–140; PULSE 72–135; TEMP 97.7–983.7; O2SAT 75–100
[2020-09-03 04:01] LABS: BASO % 0.3 % (0.0-2.0); EOS # 0.1 (0.0-0.7); EOS % 0.8 % (0-4.0); GRAN # 5.7 (1.4-6.5); GRAN % 77.9 % (42.2-75.2); LYMPH # 0.9 (1.2-3.4); LYMPH % 12.8 % (20.0-51.0); MEAN CELL VOLUME 92 fl (80.0-100.0); MEAN CORPUSCULAR HGB CONC 31 g/dl (33.0-37.0); MEAN PLATELET VOLUME 11.1 fl (7.4-10.4); MONO # 0.5 (0.1-0.6); PLATELET COUNT 201 K/mm3 (130-400); RED BLOOD COUNT 3.24 M/mm3 (4.20-5.60); REDCELL DISTRIBUTION WIDTH-CV 14.7 % (11.5-14.5)
[2020-09-03 04:06] LABS: HEMATOCRIT 29.7 % (42.0-52.0); HEMOGLOBIN 9.3 g/dl (13.5-18.0); MEAN CORPUSCULAR HEMOGLOBIN 29 pg (27.0-31.0)
[2020-09-03 04:13] LABS: ALBUMIN 2.6 gm/dL (3.5-5.0); BILIRUBIN,TOTAL 0.3 mg/dL (0.0-1.0); CALCIUM 8.1 mg/dL (8.4-10.2); CREATININE, serum 0.82 (0.66-1.25); TOTAL PROTEIN 5.5 gm/dL (6.4-8.2)
[2020-09-03 06:06] LABS: ARTERIAL BLD GAS O2 SATURATION 92.7 % (92-100); ARTERIAL BLOOD GAS BASE EXCESS 3.1 (-2-2); ARTERIAL BLOOD GAS HCO3 27.7 meq/L (22-26); ARTERIAL BLOOD GAS PCO2 42.4 mmHg (35-45); ARTERIAL BLOOD GAS pH 7.43 (7.35-7.45)
--- NOTE | 2020-09-03 07:00 | NUR ---
PT INTUBATED AND SEDATED. PT'S VSS. PT ON VERSED, FENT, PRECEDEX. WILL CONTINUE TO MONITOR.
--- NOTE | 2020-09-03 10:14 | NUR ---
WEANING ASSESSMENT WAS NOT PERFORMED
--- NOTE | 2020-09-03 14:39 | NUR ---
CPAP TRIAL OVER. SEDATION INCREASED PER
--- NOTE | 2020-09-03 17:00 | NUR ---
PT HAD A SEDATION VACATION EARLIER TODAY PER REQUEST. SEDATION WAS CUT DOWN AND PT PLACED ON CPAP TRIAL. PT WAS ABLE TO OPEN EYES, BUT DID NOT FOLLOW COMMANDS. PT TOLERATED SEDATION VACATION AND CPAP TRAIL FOR ABOUT THREE HOURS BUT THEN BECAME TACHYCARDIC AND TACHYPNIC. SEDATION WAS INCREASED PER .
[2020-09-04] VITALS (721 sets, daily range): BP systolic 107–161; BP diastolic 57–80; PULSE 76–120; TEMP 96.6–98.2; O2SAT 90–100
[2020-09-04 04:50] LABS: BASO % 0.1 % (0.0-2.0); EOS # 0.1 (0.0-0.7); EOS % 0.6 % (0-4.0); GRAN # 6.7 (1.4-6.5); GRAN % 83.6 % (42.2-75.2); LYMPH # 0.8 (1.2-3.4); LYMPH % 9.7 % (20.0-51.0); MEAN CELL VOLUME 89 fl (80.0-100.0); MEAN CORPUSCULAR HGB CONC 31 g/dl (33.0-37.0); MEAN PLATELET VOLUME 11.4 fl (7.4-10.4); MONO # 0.4 (0.1-0.6); MONO % 4.9 % (1.7-9.3); PLATELET COUNT 207 K/mm3 (130-400); RED BLOOD COUNT 3.38 M/mm3 (4.20-5.60); REDCELL DISTRIBUTION WIDTH-CV 14.5 % (11.5-14.5)
[2020-09-04 04:56] LABS: ALBUMIN 2.6 gm/dL (3.5-5.0); BILIRUBIN,TOTAL 0.3 mg/dL (0.0-1.0); CREATININE, serum 0.74 (0.66-1.25); HEMOGLOBIN 9.4 g/dl (13.5-18.0); MAGNESIUM 2.5 mg/dL (1.6-2.3); MEAN CORPUSCULAR HEMOGLOBIN 28 pg (27.0-31.0); PHOSPHOROUS 3.8 mg/dL (2.5-4.5); POTASSIUM 5.1 mmol/L (3.4-5.0); TOTAL PROTEIN 5.6 gm/dL (6.4-8.2)
[2020-09-04 04:57] LABS: HEMATOCRIT 30.2 % (42.0-52.0)
[2020-09-04 05:04] LABS: PRE ALBUMIN 19.1 mg/dL (17.6-36.0)
[2020-09-04 05:51] LABS: ARTERIAL BLD GAS O2 SATURATION 94.1 % (92-100); ARTERIAL BLD GAS TCO2 CT 31.9; ARTERIAL BLOOD GAS BASE EXCESS 6.5 (-2-2); ARTERIAL BLOOD GAS HCO3 30.6 meq/L (22-26); ARTERIAL BLOOD GAS PCO2 41.8 mmHg (35-45); ARTERIAL BLOOD GAS PO2 72.5 mmHg (80-100); ARTERIAL BLOOD GAS pH 7.48 (7.35-7.45)
--- NOTE | 2020-09-04 12:15 | NUR ---
Kenn with [facility] states they will not be able to accept the patient without a trach and peg tube placed due to their covid protocols. chemical research worker notified patient's nurse of the above information.
--- NOTE | 2020-09-04 19:22 | NUR ---
PT report given to AURA Osuna.
[2020-09-05] VITALS (692 sets, daily range): BP systolic 106–173; BP diastolic 59–91; PULSE 76–132; TEMP 97.7–99.8; O2SAT 90–100
[2020-09-05 05:09] LABS: BASO % 0.2 % (0.0-2.0); EOS % 0.4 % (0-4.0); GRAN # 6.9 (1.4-6.5); GRAN % 82.5 % (42.2-75.2); LYMPH # 0.9 (1.2-3.4); LYMPH % 11.2 % (20.0-51.0); MEAN CELL VOLUME 89 fl (80.0-100.0); MEAN CORPUSCULAR HGB CONC 32 g/dl (33.0-37.0); MONO # 0.4 (0.1-0.6); PLATELET COUNT 216 K/mm3 (130-400); RED BLOOD COUNT 3.24 M/mm3 (4.20-5.60); REDCELL DISTRIBUTION WIDTH-CV 14.3 % (11.5-14.5)
[2020-09-05 05:15] LABS: CREATININE, serum 0.75 (0.66-1.25); HEMATOCRIT 28.7 % (42.0-52.0); HEMOGLOBIN 9.2 g/dl (13.5-18.0); MEAN CORPUSCULAR HEMOGLOBIN 28 pg (27.0-31.0); POTASSIUM 4.8 mmol/L (3.4-5.0)
--- NOTE | 2020-09-05 05:21 | NUR ---
ATTEMPTED TO DECREASE SEDATION PER DR. LUCIO ORDERS. OVERALL PT TOLERATED WELL. INCREASED RESPRATORY AND HR WHEN PRECEDEX DC'D BUT PT IS TRACKING INTERMITTENTLY AND MOVING EXTREMETIES. NODS YES, UNSURE IF TRUE RESPONSE TO QUESTIONS OR JUST COMPLETING THE MOTION. ATTEMPTS TO LISTEN AND BE CALMED BUT HAS SHORT ATTENTION SPAN. WILL LEAVE SEDATION DUE TO PT RESTING CALM IN BED AND VSS ELEVATED BUT STABLE.
[2020-09-05 05:48] LABS: ARTERIAL BLD GAS O2 SATURATION 98.2 % (92-100); ARTERIAL BLD GAS TCO2 CT 31.5; ARTERIAL BLOOD GAS BASE EXCESS 5.9 (-2-2); ARTERIAL BLOOD GAS HCO3 30.2 meq/L (22-26); ARTERIAL BLOOD GAS PCO2 42.6 mmHg (35-45); ARTERIAL BLOOD GAS PO2 112.5 mmHg (80-100); ARTERIAL BLOOD GAS pH 7.47 (7.35-7.45)
--- NOTE | 2020-09-05 15:14 | NUR ---
Yarn Examiner contacted Kenn at [facility] and faxed clinical updates.
--- NOTE | 2020-09-05 19:44 | NUR ---
REPORT GIVEN TO AURA CARTY
--- NOTE | 2020-09-05 20:00 | NUR ---
Assessment complete and charted. Repositioned. Patient tracts with eyes but does not follow any commands. Respiratory in room for breathing treatment.
[2020-09-06] VITALS (865 sets, daily range): BP systolic 102–181; BP diastolic 56–102; PULSE 70–139; TEMP 97.8–98.9; O2SAT 89–100
[2020-09-06 05:49] LABS: ARTERIAL BLD GAS O2 SATURATION 96.8 % (92-100); ARTERIAL BLD GAS TCO2 CT 32.2; ARTERIAL BLOOD GAS BASE EXCESS 5.2 (-2-2); ARTERIAL BLOOD GAS HCO3 30.6 meq/L (22-26); ARTERIAL BLOOD GAS PCO2 49.9 mmHg (35-45); ARTERIAL BLOOD GAS PO2 92.6 mmHg (80-100); ARTERIAL BLOOD GAS pH 7.41 (7.35-7.45)
--- NOTE | 2020-09-06 06:14 | NUR ---
Weaning trial started at 0540. Patient tolerating well. BP increased slightly. Fentanyl increased to aide with BP. Patient alert. Following commands at this time
[2020-09-06 06:20] LABS: BASO % 0.4 % (0.0-2.0); EOS # 0.1 (0.0-0.7); EOS % 0.9 % (0-4.0); GRAN # 5.7 (1.4-6.5); LYMPH # 1.1 (1.2-3.4); LYMPH % 14.1 % (20.0-51.0); MEAN CELL VOLUME 89 fl (80.0-100.0); MEAN CORPUSCULAR HGB CONC 32 g/dl (33.0-37.0); MEAN PLATELET VOLUME 11.1 fl (7.4-10.4); MONO # 0.5 (0.1-0.6); MONO % 6.9 % (1.7-9.3); PLATELET COUNT 200 K/mm3 (130-400); RED BLOOD COUNT 3.24 M/mm3 (4.20-5.60); REDCELL DISTRIBUTION WIDTH-CV 14.4 % (11.5-14.5)
[2020-09-06 06:26] LABS: CALCIUM 8.2 mg/dL (8.4-10.2); CREATININE, serum 0.74 (0.66-1.25); POTASSIUM 4.9 mmol/L (3.4-5.0)
[2020-09-06 06:28] LABS: HEMATOCRIT 28.9 % (42.0-52.0); HEMOGLOBIN 9.1 g/dl (13.5-18.0); MEAN CORPUSCULAR HEMOGLOBIN 28 pg (27.0-31.0)
--- NOTE | 2020-09-06 07:00 | NUR ---
RECEIVED REPORT FROM AURA MARTINEZ. PT RESTING EASILY ON CPAP TRIAL. NOTED HR 120-130s, SBP 160-170s. PT AWAKE AND DOES FOLLOW SOME SIMPLE COMMANDS BUT NOT ALL. DOES LOOK AT RN. CURRENT VENT SETTINGS: FIO2 35%. OGT WITH TF INFUSING AT 55ML/HR. SEE GTT FLOWSHEET. FC PATENT AND DRAINING TO GRAVITY.
--- NOTE | 2020-09-06 07:08 | NUR ---
PT IS ON WEANING TRIAL BRODY WELL WITH A PRESSURE SUPPORT OF 6 AND 35% FI02
--- NOTE | 2020-09-06 08:15 | NUR ---
DR LUCIO NOTIFIED OF PT'S CURRENT VS, HY 140s, SBP 170s. PER PROVIDER, STATES TO PLACE PT BACK ON AC MODE AND INCREASE SEDATION. SEE GTT FLOWSHEET. RT NOTIFIED.
--- NOTE | 2020-09-06 09:06 | NUR ---
DR LUCIO AT BEDSIDE FOR ASSESSMENT. PROVIDER STATES TO INCREASE SEDATION. PROVIDER STATES TOMORROW MORNING ATTEMPT TO CUT SEDATION DOWN QUITE A BIT AT SHIFT CHANGE AND SEE HOW PT DOES TO TRY FOR EXTUBATION.
[2020-09-07] VITALS (885 sets, daily range): BP systolic 84–195; BP diastolic 56–117; PULSE 74–115; TEMP 97.9–99.9; O2SAT 89–100
[2020-09-07 05:01] LABS: BASO % 0.4 % (0.0-2.0); EOS % 0.6 % (0-4.0); GRAN # 5.4 (1.4-6.5); GRAN % 76.2 % (42.2-75.2); LYMPH % 13.5 % (20.0-51.0); MEAN CELL VOLUME 89 fl (80.0-100.0); MEAN CORPUSCULAR HGB CONC 32 g/dl (33.0-37.0); MEAN PLATELET VOLUME 10.6 fl (7.4-10.4); MONO # 0.6 (0.1-0.6); MONO % 8.7 % (1.7-9.3); PLATELET COUNT 219 K/mm3 (130-400); RED BLOOD COUNT 3.17 M/mm3 (4.20-5.60); REDCELL DISTRIBUTION WIDTH-CV 14.4 % (11.5-14.5)
[2020-09-07 05:03] LABS: HEMATOCRIT 28.2 % (42.0-52.0); HEMOGLOBIN 8.9 g/dl (13.5-18.0); MEAN CORPUSCULAR HEMOGLOBIN 28 pg (27.0-31.0)
[2020-09-07 05:11] LABS: CREATININE, serum 0.64 (0.66-1.25); POTASSIUM 4.6 mmol/L (3.4-5.0)
--- NOTE | 2020-09-07 05:12 | NUR ---
SEDATION TURNED UP AT BEGINING OF SHIFT DT ELEVATED HR AND BP (SEE VITALS). ATIVAN GIVEN AND ATTEMPTED TO SLOWLY DECREASE SEDATION THROUGHOUT SHIFT. PT STRONG AND PURPOSEFUL, CONTINUES TO NOD TO QUESTIONS BUT UNABLE TO GET HIM TO FOLLOW COMMANDS. WILL CONTINUE TO DECREASE AM APPROACHES IN ATTEMPT FOR CPAP TRIAL.
[2020-09-07 05:40] LABS: ARTERIAL BLD GAS O2 SATURATION 97.1 % (92-100); ARTERIAL BLD GAS TCO2 CT 32.9; ARTERIAL BLOOD GAS HCO3 31.4 meq/L (22-26); ARTERIAL BLOOD GAS PCO2 49.6 mmHg (35-45); ARTERIAL BLOOD GAS pH 7.42 (7.35-7.45)
--- NOTE | 2020-09-07 06:59 | NUR ---
GOAL TO DECREASE SEDATION OVERNIGHT. PT TOLERATED TITRATIONS WELL. WOULD BECOME INTERMITTENTLY TACHYCARDIC MOSTLY WITH ORAL CARE BUT WOULD RECOVER RELATIVELY QUICKLY. DID NOT FOLLOW COMMANDS BUT WAS PURPOSEFUL AND TRACKED FROM DOOR AND ALL AROUND ROOM. DID NOT GIVE AM DILTIAZEM DT CONSISTANT LOW BPS THIS AM. NOTED TEMP MAX AT 99.0. UNCOVERED PT AND TURNED DOWN ROOM TEMP FIRST ATTEMPTS TO DECREASE TEMP. TOLERATED TF WELL, HIGHEST RESIDUAL 30ML. ABG AND LABS REVIEWED WITH NO MAJOR CHANGES. FI02 TURNED TO 40% AT BEGINING OF SHIFT DT PAO2 89-91% MAINTAINED >95% SINCE TITRATION.
--- NOTE | 2020-09-07 10:35 | NUR ---
Report given to AURA Kelley
--- NOTE | 2020-09-07 10:52 | NUR ---
PATIENT'S FENTANYL WAS ON STANDBY AT TIME OF REPORT RECEIVED FROM AURA ANGUIANO.
--- NOTE | 2020-09-07 10:52 | NUR ---
RECEIVED REPORT FROM AURA ANGUIANO. PATIENT IS HYPERTENSIVE AND SEEMS TO BE FIGHTING THE VENT. OTHERWISE, VSS. FENTANYL IS ON STANDBY. SEE GTT TITRATION FLOWSHEET. CURRENTLY ON PRESSURE SUPPORT FOR WEANING TRIAL SINCE 8 AM. BANEGAS CATHETER IS PATENT, DRAINING TO GRAVITY AND FREE OF KINKS AND DEPENDENT LOOPS.
--- NOTE | 2020-09-07 11:53 | NUR ---
Coke Inspector spoke with Kenn at [facility] who is here to speak with nursing for updates on patient. SW also contacted patient's daughter, Guerline to introduce self and check in. Guerline is in agreement with transfer to [facility] once they can accept. Guerline inquired about patient's , Tash visiting before patient leaves for [facility]. VIET spoke with Elizabeth, ICU Director who advised if patient is off isolation early next week, Tash could come in to visit.
[2020-09-07 13:53] LABS: ARTERIAL BLD GAS O2 SATURATION 66.6 % (92-100); ARTERIAL BLD GAS TCO2 CT 28.6; ARTERIAL BLOOD GAS BASE EXCESS 1.1 (-2-2); ARTERIAL BLOOD GAS HCO3 27.1 meq/L (22-26); ARTERIAL BLOOD GAS PCO2 49.9 mmHg (35-45); ARTERIAL BLOOD GAS pH 7.35 (7.35-7.45)
[2020-09-07 13:54] LABS: ARTERIAL BLOOD GAS PO2 36.5 mmHg (80-100)
--- NOTE | 2020-09-07 17:03 | NUR ---
ADVISED AGAINST SEDATION VACATION BECAUSE OF HYPERTENSION AND PATIENT'S AGITATION LEVEL DURING WEANING TRIAL THIS MORNING.
--- NOTE | 2020-09-07 20:00 | NUR ---
PATIENT RESPONDS TO VOICE OPENS EYES, NO TRACKIN FOUND, WITH DRAWS FROM PAIN,
[2020-09-08] VITALS (1093 sets, daily range): BP systolic 85–1610; BP diastolic 56–105; PULSE 71–122; TEMP 98–100.4; O2SAT 82–100
--- NOTE | 2020-09-08 00:44 | NUR ---
PATIENT IS DROWSY WITH LOWERING B/Ps/ sedation and pain medication decreased / B/P BACK TO 130/ 80 WITH STIMULATION
[2020-09-08 05:41] LABS: ARTERIAL BLD GAS O2 SATURATION 97.7 % (92-100); ARTERIAL BLD GAS TCO2 CT 31.6; ARTERIAL BLOOD GAS BASE EXCESS 6.1 (-2-2); ARTERIAL BLOOD GAS HCO3 30.3 meq/L (22-26); ARTERIAL BLOOD GAS PCO2 42.5 mmHg (35-45); ARTERIAL BLOOD GAS pH 7.47 (7.35-7.45)
--- NOTE | 2020-09-08 05:46 | NUR ---
AT THIS TIME ANUP APPEARS TO BE COMFORTABLE WITH VENTILATOR AND COT, WE WILL CONTINUE TO OBSERVE
[2020-09-08 06:28] LABS: BASO % 0.4 % (0.0-2.0); EOS # 0.1 (0.0-0.7); EOS % 1.1 % (0-4.0); GRAN # 6.8 (1.4-6.5); GRAN % 75.4 % (42.2-75.2); LYMPH # 1.3 (1.2-3.4); LYMPH % 14.1 % (20.0-51.0); MEAN CELL VOLUME 90 fl (80.0-100.0); MEAN CORPUSCULAR HGB CONC 32 g/dl (33.0-37.0); MEAN PLATELET VOLUME 10.7 fl (7.4-10.4); MONO # 0.8 (0.1-0.6); MONO % 8.4 % (1.7-9.3); PLATELET COUNT 236 K/mm3 (130-400); RED BLOOD COUNT 3.32 M/mm3 (4.20-5.60); REDCELL DISTRIBUTION WIDTH-CV 14.7 % (11.5-14.5)
[2020-09-08 06:29] LABS: HEMATOCRIT 29.8 % (42.0-52.0); HEMOGLOBIN 9.6 g/dl (13.5-18.0); MEAN CORPUSCULAR HEMOGLOBIN 29 pg (27.0-31.0)
[2020-09-08 06:40] LABS: CALCIUM 8.6 mg/dL (8.4-10.2); CREATININE, serum 0.76 (0.66-1.25); POTASSIUM 4.3 mmol/L (3.4-5.0)
--- NOTE | 2020-09-08 07:30 | NUR ---
RECEIVED REPORT FROM AURA MENDOZA. PATIENT IS TACHYCARDIC AT THIS TIME BUT AT A MODERATE SEDATION FOR PATIENT. OTHERWISE, VSS. BANEGAS PATENT, DRAINING TO GRAVITY, FREE OF KINKS AND DEPENDENT LOOPS. SEE GTT TITRATION FLOWSHEET. PATIENT SEEMS COMFORTABLE AND RESTING. PICC IN RIGHT UPPER ARM PATENT WITH GOOD BLOOD RETURN.
--- NOTE | 2020-09-08 08:17 | NUR ---
DR. LUCIO AT BEDSIDE. ATTEMPTING TO EXTUBATE DURING WEANING TRIAL. SEDATION PLACED ON STANDBY.
[2020-09-08 09:38] LABS: ARTERIAL BLD GAS TCO2 CT 31.2; ARTERIAL BLOOD GAS BASE EXCESS 5.3 (-2-2); ARTERIAL BLOOD GAS HCO3 29.8 meq/L (22-26); ARTERIAL BLOOD GAS PCO2 43.8 mmHg (35-45); ARTERIAL BLOOD GAS PO2 55.2 mmHg (80-100); ARTERIAL BLOOD GAS pH 7.45 (7.35-7.45)
--- NOTE | 2020-09-08 13:25 | NUR ---
CDC Guidance RE: Symptom-based Strategy for Discontiniuing Transmission-Based Precautions in patients with severe to critical illness who are severely immunocompromised---at least 10-20 days since symptoms appeared or first positive test date if symptom date unknown.. AND.. at least 24 hrs since last fever without use of fever-reducing medications.. AND.. symptoms (e.g., cough, shortness of breath) have improved. Follow guidance from infection control experts (e.g., Drs. Palencia and Rod. Today patient remains on ventilator. FridaySeptember 11 is 20 days post first positive test recorded.
--- NOTE | 2020-09-08 15:17 | NUR ---
Stretching Machine Operator checked in with patient's daughter, Guerline before the weekend. Guerline advised she was told by Dr. Velasco that trach/peg would be done Friday. SW to continue to follow.
--- NOTE | 2020-09-08 17:00 | NUR ---
PATIENT VERY DROWSY AT THIS TIME. OPENS EYES TO SPEECH. JUST NEEDED HELP BECOMING MORE AROUSABLE FOR ABOUT 15 MINUTES. ENDED UP PUTTING SEDATION ON STANDBY TO SEE HOW PATIENT WAS TOLERATING. TOLERATING WELL AND TAKING SPONTANEOUS BREATHS.
[2020-09-09] VITALS (816 sets, daily range): BP systolic 92–173; BP diastolic 59–90; PULSE 88–127; TEMP 98–101.2; O2SAT 82–100
[2020-09-09 04:20] LABS: BASO % 0.5 % (0.0-2.0); EOS % 0.5 % (0-4.0); GRAN # 6.6 (1.4-6.5); GRAN % 75.7 % (42.2-75.2); LYMPH # 1.1 (1.2-3.4); LYMPH % 12.4 % (20.0-51.0); MEAN CELL VOLUME 90 fl (80.0-100.0); MEAN CORPUSCULAR HGB CONC 32 g/dl (33.0-37.0); MEAN PLATELET VOLUME 10.4 fl (7.4-10.4); MONO # 0.9 (0.1-0.6); MONO % 10.6 % (1.7-9.3); PLATELET COUNT 227 K/mm3 (130-400); RED BLOOD COUNT 3.26 M/mm3 (4.20-5.60); REDCELL DISTRIBUTION WIDTH-CV 14.9 % (11.5-14.5)
[2020-09-09 04:23] LABS: HEMATOCRIT 29.2 % (42.0-52.0); HEMOGLOBIN 9.3 g/dl (13.5-18.0); MEAN CORPUSCULAR HEMOGLOBIN 29 pg (27.0-31.0)
[2020-09-09 04:31] LABS: CALCIUM 8.5 mg/dL (8.4-10.2); CREATININE, serum 0.71 (0.66-1.25); POTASSIUM 4.2 mmol/L (3.4-5.0)
--- NOTE | 2020-09-09 07:28 | NUR ---
RECEIVED REPORT FROM AURA NAVARRO. PATIENT IS STILL ON VENTILATOR AND SEEMS COMFORTABLE AND RESTING. SEE GTT TITRATION FLOWSHEET. VSS. BANEGAS CATHETER PATENT, DRAINING TO GRAVITY AND FREE OF KINKS AND DEPENDENT LOOPS. MARYAN PICC IN PLACE AND PATENT WITH GOOD BLOOD RETURN.
--- NOTE | 2020-09-09 09:11 | NUR ---
DR. LUCIO AT BEDSIDE. BEGINNING WEANING TRIAL AND PLACING SEDATION ON STANDBY MODE FOR LONG TOLERABLE AND WILL COLLECT ABGs POST. ORDERS RECEIVED AND PLAN OF CARE DISCUSSED.
--- NOTE | 2020-09-09 09:41 | NUR ---
BEGINNING WEANING TRIAL NOW.
--- NOTE | 2020-09-09 10:38 | NUR ---
DR. MOYER AT BEDSIDE. DISCUSSED PLAN OF CARE AND GAVE UPDATES ABOUT WEANING TRIAL. NO FURTHER CHANGES OR ORDERS AT THIS TIME.
--- NOTE | 2020-09-09 17:57 | NUR ---
PATIENT HAD SUCCESS WITH WEANING TRIAL FOR 8 HOURS. TOLERATED VERY WELL, BUT STILL UNABLE TO CLEAR SECRETIONS. JUST RESUMED SEDATION. SEE GTT TITRATIONS. STARTING PRECEDEX INSTEAD OF VERSED TO HELP WITH RESPIRATORY DRIVE AND COMBAT AGITATION.
[2020-09-10] VITALS (554 sets, daily range): BP systolic 86–171; BP diastolic 53–87; PULSE 74–150; TEMP 97.8–99.2; O2SAT 71–100
[2020-09-10 04:34] LABS: ARTERIAL BLD GAS O2 SATURATION 97.5 % (92-100); ARTERIAL BLD GAS TCO2 CT 33.8; ARTERIAL BLOOD GAS BASE EXCESS 8.8 (-2-2); ARTERIAL BLOOD GAS HCO3 32.5 meq/L (22-26); ARTERIAL BLOOD GAS PCO2 41.5 mmHg (35-45); ARTERIAL BLOOD GAS PO2 96.3 mmHg (80-100); ARTERIAL BLOOD GAS pH 7.51 (7.35-7.45)
[2020-09-10 05:18] LABS: BASO % 0.4 % (0.0-2.0); EOS % 0.4 % (0-4.0); GRAN # 6.3 (1.4-6.5); GRAN % 79.7 % (42.2-75.2); HEMOGLOBIN 8.8 g/dl (13.5-18.0); LYMPH # 0.8 (1.2-3.4); LYMPH % 9.7 % (20.0-51.0); MEAN CELL VOLUME 91 fl (80.0-100.0); MEAN CORPUSCULAR HEMOGLOBIN 29 pg (27.0-31.0); MEAN CORPUSCULAR HGB CONC 31 g/dl (33.0-37.0); MEAN PLATELET VOLUME 10.8 fl (7.4-10.4); MONO # 0.8 (0.1-0.6); MONO % 9.5 % (1.7-9.3); PLATELET COUNT 224 K/mm3 (130-400); RED BLOOD COUNT 3.08 M/mm3 (4.20-5.60)
[2020-09-10 05:28] LABS: CALCIUM 8.5 mg/dL (8.4-10.2); CREATININE, serum 0.65 (0.66-1.25); POTASSIUM 4.2 mmol/L (3.4-5.0)
--- NOTE | 2020-09-10 07:00 | NUR ---
Esther,RT in room with pt during RN-RN report - called out asking if the ETT was repositioned overnight - the ETT was approx 24-25 at the lips but was pulled out several centimeters - ventilator volumes adequate, SpO2>90% - MD Rod and MD Arthur after Esther,RT advanced ETT back to previous known 25cm - Chest Xray to be performed for placement
--- NOTE | 2020-09-10 10:07 | NUR ---
RT NOTED THAT ET TUBE WAS PULLED OUT TO 21 CM DURING 729 VENT CHECK. RN NOTIFIED AND TUBE WAS PUSHED BACK TO 25 CM @ LIP WAS ORIGINAL POSITION. CXR REQUESTED FOR TUBE PLACEMENT.
--- NOTE | 2020-09-10 11:46 | NUR ---
RT AND RN CHANGED GABRIELA, SHAVED PT AND WASHED HIS FACE. SKIN RED UNDER OLD ADHESIVE BUT NO FRESH BREAKS IN SKIN. NEW GABRIELA IN PLACE WITH PT APPEARING MORE COMFORTABLE.
--- NOTE | 2020-09-10 20:22 | NUR ---
Patient lethargic responsive to deep painful stimuli only upon this nurse initial assessment, noted that b/p was also reading low, 2003 decreased precedex to 0.2mcg/kg/min and placed fentanyl on standby, obtained fsbs per orders and noted value of 63, administered d50 as ordered and restarted tf per orders at 2019 fsbs at 103 at patient becoming more responsive to light touch at this time
--- NOTE | 2020-09-10 22:57 | NUR ---
spoke with hospitalist PRESTON Torres regarding patient low blood sugar of earlier this shift, updated on interventions and current blood sugar, also received order to given 25 units of levimir tonight instead of 55units currently ordered, also discussed patient's lower b/p and hr and holding lopressor dose at this time also received new order for levo if needed to maintain map goals
[2020-09-11] VITALS (545 sets, daily range): BP systolic 114–185; BP diastolic 68–100; PULSE 74–124; TEMP 97.9–98.5; O2SAT 75–100
[2020-09-11 03:25] LABS: ARTERIAL BLD GAS O2 SATURATION 96.7 % (92-100); ARTERIAL BLD GAS TCO2 CT 33.9; ARTERIAL BLOOD GAS BASE EXCESS 7.6 (-2-2); ARTERIAL BLOOD GAS HCO3 32.4 meq/L (22-26); ARTERIAL BLOOD GAS PCO2 47.7 mmHg (35-45); ARTERIAL BLOOD GAS PO2 86.5 mmHg (80-100); ARTERIAL BLOOD GAS pH 7.45 (7.35-7.45)
[2020-09-11 05:08] LABS: BASO % 0.4 % (0.0-2.0); EOS # 0.1 (0.0-0.7); MEAN CELL VOLUME 92 fl (80.0-100.0); MEAN CORPUSCULAR HGB CONC 31 g/dl (33.0-37.0); MEAN PLATELET VOLUME 10.2 fl (7.4-10.4); MONO # 0.4 (0.1-0.6); MONO % 9.4 % (1.7-9.3); PLATELET COUNT 242 K/mm3 (130-400); RED BLOOD COUNT 3.13 M/mm3 (4.20-5.60)
[2020-09-11 05:16] LABS: BILIRUBIN,TOTAL 0.3 mg/dL (0.0-1.0); CALCIUM 8.7 mg/dL (8.4-10.2); CREATININE, serum 0.63 (0.66-1.25); MAGNESIUM 2.6 mg/dL (1.6-2.3); PHOSPHOROUS 3.9 mg/dL (2.5-4.5); TOTAL PROTEIN 6.4 gm/dL (6.4-8.2)
[2020-09-11 05:23] LABS: PRE ALBUMIN 18.1 mg/dL (17.6-36.0)
[2020-09-11 05:27] LABS: HEMATOCRIT 28.7 % (42.0-52.0); MEAN CORPUSCULAR HEMOGLOBIN 29 pg (27.0-31.0)
--- NOTE | 2020-09-11 08:15 | NUR ---
PT EXTUBATED TO 6 LPM OXYMASK PER . PT AWAKE AND ALERT.
--- NOTE | 2020-09-11 08:45 | NUR ---
Pt awake, alert and following all commands including lifting head off bed and holding. Pt extubated with MD Rod standing by at 0845 Pt tolerated extubation well, placed on OxyMask at 10L then quickly titrated down to 4L NC. Pt unable to talk but is able to whisper loud enough to communicate (throughout the day pt's voice has slightly returned). Pt able to state name and . Confused on situation and year - pt also unable to state name of daughter and thinks is - reorientation and education provided with limited recall Pt as several times removed nasal cannula and is unable to explain why, education provided - SpO2 did decrease to 85% while on room air. Pt remains NPO except crushed meds with applesauce per Speech Pathologist Pt's COVID precautions ends Friday09/12/2020 per MD Rod, MD Emani and AURA Vance. Call light in reach, education on fall prevention and use of call light provided multiple times today - pt did have one weak attempt to get out of bed setting off bed alarm
[2020-09-11 10:31] LABS: ARTERIAL BLD GAS O2 SATURATION 95.8 % (92-100); ARTERIAL BLD GAS TCO2 CT 33.8; ARTERIAL BLOOD GAS BASE EXCESS 7.7 (-2-2); ARTERIAL BLOOD GAS HCO3 32.4 meq/L (22-26); ARTERIAL BLOOD GAS PCO2 45.8 mmHg (35-45); ARTERIAL BLOOD GAS pH 7.47 (7.35-7.45)
--- NOTE | 2020-09-11 13:55 | NUR ---
Patient was extubated this morning. VIET contacted Kenn at [facility] and faxed clinical updates. Kenn to review updates and advised they may be able to accept tomorrow. VIET collaborated with RN, Jw who advised patient should come off isolation tomorrow, per Dr. Villalpando. VIET contacted patient's daughter, Guerline who is still agreeable for patient to go to [facility]. Guerline advised that her mother, Tash would still like to visit if possible. Guerline advised that Tash was never officially tested as their household had all tested positive for COVID. Guerline advised that Tash has been off quarantine since the and no longer has any symptoms. Guerline advised Tash has regained her taste and smell. VIET reviewed this with ICU needle process felt goods supervisor, Sara who advised that as long as patient is off isolation, Tash should be able to visit.
--- NOTE | 2020-09-11 15:19 | NUR ---
Drier collaborated with Hospitalist who inquired about an IPR screen for patient now that he is extubated. SW contacted Sidra, IPR Director to give screen. VIET spoke with Kenn at [facility] who advised patient would likely only qualify for LTACH tomorrow and Friday, so a decision would need to be made quickly. VIET contacted patient's daughter, Guerline to provide above update. Guerline advised it would be great if patient could stay local, however are still agreeable with patient going to [facility] if that is what is needed. Guerline states she and patient's , Tash want patient to get the care he needs.
[2020-09-12] VITALS (567 sets, daily range): BP systolic 122–168; BP diastolic 79–110; PULSE 70–92; TEMP 97.9–98.6; O2SAT 85–100
[2020-09-12 05:47] LABS: BASO % 0.8 % (0.0-2.0); EOS # 0.1 (0.0-0.7); EOS % 1.8 % (0-4.0); GRAN # 3.8 (1.4-6.5); GRAN % 75.5 % (42.2-75.2); LYMPH # 0.7 (1.2-3.4); LYMPH % 14.4 % (20.0-51.0); MEAN CELL VOLUME 90 fl (80.0-100.0); MEAN CORPUSCULAR HGB CONC 31 g/dl (33.0-37.0); MEAN PLATELET VOLUME 9.8 fl (7.4-10.4); MONO # 0.4 (0.1-0.6); MONO % 7.1 % (1.7-9.3); PLATELET COUNT 278 K/mm3 (130-400); RED BLOOD COUNT 3.29 M/mm3 (4.20-5.60); REDCELL DISTRIBUTION WIDTH-CV 14.7 % (11.5-14.5)
[2020-09-12 05:55] LABS: HEMATOCRIT 29.6 % (42.0-52.0); HEMOGLOBIN 9.3 g/dl (13.5-18.0); MEAN CORPUSCULAR HEMOGLOBIN 28 pg (27.0-31.0)
[2020-09-12 05:58] LABS: CALCIUM 8.8 mg/dL (8.4-10.2); CREATININE, serum 0.66 (0.66-1.25); POTASSIUM 3.7 mmol/L (3.4-5.0)
--- NOTE | 2020-09-12 07:00 | NUR ---
Report received from AURA Izaguirre
--- NOTE | 2020-09-12 11:00 | NUR ---
Swallow eval completed with Lea. Patient will be on Pureed diet with thin liquids. He is doing well. He is currently 3L O2 and tolerating well. at the bedside.
--- NOTE | 2020-09-12 15:00 | NUR ---
Patient bed alarm goes off at this time. He is found with legs hanging out of the bed. He is reminded to not get out of bed with out help. He is repositioned and bed alarm is reset.
--- NOTE | 2020-09-12 18:40 | NUR ---
Bed alarm goes off at this time. Patient is reminded yet again to call for help when he needs something. He verbalizes understanding. Bed Alarm reset.
--- NOTE | 2020-09-12 19:20 | NUR ---
Report given to AURA Izaguirre
[2020-09-13] VITALS (405 sets, daily range): BP systolic 140–168; BP diastolic 71–94; PULSE 70–106; TEMP 98–98.4; O2SAT 76–99
[2020-09-13 05:28] LABS: MEAN CELL VOLUME 89 fl (80.0-100.0); MEAN CORPUSCULAR HGB CONC 32 g/dl (33.0-37.0); MEAN PLATELET VOLUME 9.3 fl (7.4-10.4); PLATELET COUNT 268 K/mm3 (130-400); RED BLOOD COUNT 3.23 M/mm3 (4.20-5.60); REDCELL DISTRIBUTION WIDTH-CV 14.6 % (11.5-14.5)
[2020-09-13 05:30] LABS: HEMATOCRIT 28.6 % (42.0-52.0); HEMOGLOBIN 9.2 g/dl (13.5-18.0); MEAN CORPUSCULAR HEMOGLOBIN 28 pg (27.0-31.0)
[2020-09-13 05:39] LABS: CALCIUM 8.5 mg/dL (8.4-10.2); CREATININE, serum 0.67 (0.66-1.25); POTASSIUM 3.5 mmol/L (3.4-5.0)
--- NOTE | 2020-09-13 11:00 | NUR ---
Patient alert but confused. States he is in the hospital but thinks it is February. Patient also stating multiple times that "I want to go home" while attempting to get out of bed. Attempt to re-orient to time and place and explain that he is not well enough to go home. Fairly easily re-directed at this time. Will continue to monitor. Bed alarm is set and call light is within reach.
--- NOTE | 2020-09-13 11:52 | NUR ---
First visit from the [facility]. Patient was asleep, [facility] prayed for patient while standing outside the door.
--- NOTE | 2020-09-13 13:35 | NUR ---
Histopath Tech collaborated with Sidra, IPR Director who advised they can accept patient today if ready for discharge. VIET contacted patient's daughter Guerline and inquired if IPR stay could be billed under his Medicare instead of [facility]. Guerline spoke with patient's , Tash who was agreeable to this. VIET updated Sidra, IPR Director. Guerline was happy that patient will be able to stay local. VIET contacted Kenn at [facility] to provide update. Discharge Plan: IPR
[2020-09-13] MEDS ORDERED: IPRATROPIUM BROM3 M1 IH ×2 (13:58→16:48)
[2020-09-13] MEDS ORDERED: ELIQUIS 5MG PO (14:00)
[2020-09-13] MEDS ORDERED: PROTONIX 40MG T40 MG PO (14:02)
[2020-09-13] MEDS ORDERED: CARDIZEM 90MG T90 MG PO (14:03)
[2020-09-13] MEDS ORDERED: LOPRESSOR 550 MG/TAB PO (14:04)
[2020-09-13] MEDS ORDERED: LIPITOR 40MG TA40 MG PO (14:06)
[2020-09-13] MEDS ORDERED: BACTRIM DS 8001 TAB PO (14:08)
--- NOTE | 2020-09-13 15:08 | NUR ---
Report called to IPR nurse.
[2020-09-13] MEDS ORDERED: BETAPACE 80MG80 MG PO ×2 (15:42→15:53)
--- NOTE | 2020-09-13 16:11 | NUR ---
Clarified with AURA Hopper that Cardizem and Metoprolol were to be discontinued and sotal initiated. Will go to IPR on Telemetry. Received ok per Dr. Sutton to send patient up to [facility] with Sotalol initiation.
--- NOTE | 2020-09-13 16:12 | NUR ---
Family notified of patient transfer from ICU to [facility]. All questions and concerns addressed at this time.
--- NOTE | 2020-09-13 16:30 | NUR ---
Entered patient's room to take assist him upstair to IPR. Upon entering room this nurse observed that patient had pulled out his picc line. Blood was noted on the sheets under his arm. However, the bleeding on him arm had clotted and stopped. Bandage wrapped around arm. Picc line catheter observerd and is intact. Patient alert and partially oriented and in no distress. Assisted into wheelchair and brought to [facility].
== END 2020-09-13 16:29 | DRG 207 ==
LOC: COL.ER 14:07 → ICU 16:36
PROVIDERS: Emergency Medicine; Family Medicine; Internal Medicine Pulmonary Disease; Student in an Organized Health Care Education/Training Program; ADMIT Hospitalist
PROC: 5A09357 Assistance with Respiratory Ventilation, Less than 24 Consecutive Hours, Continuous Positive Airway Pressure (ICD-10-PCS; 2020-08-22)
PROC: 0BH17EZ Insertion of Endotracheal Airway into Trachea, Via Natural or Artificial Opening (ICD-10-PCS; principal; 2020-08-23)
PROC: 03HY32Z Insertion of Monitoring Device into Upper Artery, Percutaneous Approach (ICD-10-PCS; 2020-08-23)
PROC: 5A1945Z Respiratory Ventilation, 24-96 Consecutive Hours (ICD-10-PCS; 2020-08-23)
PROC: XW033E5 Introduction of Remdesivir Anti-infective into Peripheral Vein, Percutaneous Approach, New Technology Group 5 (ICD-10-PCS; 2020-08-23)
PROC: 02HV33Z Insertion of Infusion Device into Superior Vena Cava, Percutaneous Approach (ICD-10-PCS; 2020-08-23)
PROC: 5A1955Z Respiratory Ventilation, Greater than 96 Consecutive Hours (ICD-10-PCS; 2020-08-27)
PROC: 02HV33Z Insertion of Infusion Device into Superior Vena Cava, Percutaneous Approach (ICD-10-PCS; 2020-08-31)
DX: U07.1 COVID-19 (principal); J12.82 Pneumonia due to coronavirus disease 2019; J96.01 Acute respiratory failure with hypoxia; I21.A1 Myocardial infarction type 2; I48.92 Unspecified atrial flutter; E87.1 Hypo-osmolality and hyponatremia; R65.10 Systemic inflammatory response syndrome (SIRS) of non-infectious origin without acute organ dysfunction; E87.4 Mixed disorder of acid-base balance; J44.9 Chronic obstructive pulmonary disease, unspecified; I08.0 Rheumatic disorders of both mitral and aortic valves; L89.151 Pressure ulcer of sacral region, stage 1; I95.9 Hypotension, unspecified; I25.10 Atherosclerotic heart disease of native coronary artery without angina pectoris; E11.9 Type 2 diabetes mellitus without complications; G72.9 Myopathy, unspecified; E03.9 Hypothyroidism, unspecified; I10 Essential (primary) hypertension; E78.5 Hyperlipidemia, unspecified; H91.90 Unspecified hearing loss, unspecified ear; Z79.02 Long term (current) use of antithrombotics/antiplatelets; Z79.82 Long term (current) use of aspirin; Z95.5 Presence of coronary angioplasty implant and graft; Z86.73 Personal history of transient ischemic attack (TIA), and cerebral infarction without residual deficits; Z87.891 Personal history of nicotine dependence; Z88.0 Allergy status to penicillin; Z88.6 Allergy status to analgesic agent
CPT/HCPCS: 99223-AI; 99231-AI; 99232-AI; 99233-AI; 99239; C1751; C1892; C9113; J0282; J0330; J0360; J0461; J0692; J0696; J1100; J1650; J1815; J1940; J2060; J2185; J2250; J2704; J2997; J3010; J3475; J3480; J7030; J7050; J7060; J7120; J8540; Q9967

== ENCOUNTER 2020-09-13 11:36 | Inpatient (IN) | payer MEDICARE ==
[~2020-09-13] VITALS: Ht 180.3 cm; Wt 83.0 kg
[~2020-09-13 11:36] MED LIST: ASPIRIN 81M81 MG/TA2 PO; GLUCOPHAGE1000 MG PO; GLUCOTROL10 MG PO; LOPRESSOR100 MG PO; PLAVIX 75MG TAB75 MG PO; SURFAK 240240 MG/CAP PO; SYNTHROID0.112 MG/T PO; TOPROL XL100 MG PO; XANAX 1MG1 MG PO; ZESTRIL40 MG PO; ZOCOR 80MG80 MG PO
[2020-09-13] MEDS ORDERED: IPRATROPIUM BROM3 M1 IH ×2 (13:58→16:48)
[2020-09-13] MEDS ORDERED: ELIQUIS 5MG PO (14:00)
[2020-09-13] MEDS ORDERED: PROTONIX 40MG T40 MG PO (14:02)
[2020-09-13] MEDS ORDERED: CARDIZEM 90MG T90 MG PO (14:03)
[2020-09-13] MEDS ORDERED: LOPRESSOR 550 MG/TAB PO (14:04)
[2020-09-13] MEDS ORDERED: LIPITOR 40MG TA40 MG PO (14:06)
[2020-09-13] MEDS ORDERED: BACTRIM DS 8001 TAB PO (14:08)
[2020-09-13] MEDS ORDERED: BETAPACE 80MG80 MG PO ×2 (15:42→15:53)
[2020-09-13 18:16] VITALS: BP 173/67; PULSE 66; TEMP 98.5
--- NOTE | 2020-09-13 18:30 | NUR ---
Patient arrived to the floor at about 1700 from ICU. Patient is confused and does not know where he is. He denies pain and nausea. Before arriving to the floor this nurse was told he pulled out his own PICC line. Family is aware the patient was admitted up here. He can not answer most questions correctly and is completely disoriented. No other changes at this time. Call light within reach. Bed alarm on.
[2020-09-13 20:05] VITALS: BP 171/84; PULSE 75; TEMP 98.6
--- NOTE | 2020-09-13 21:00 | NUR ---
PT RESTING IN BED. CONFUSED X4. CAN BE IMPULSIVE. INCONTINENT OF STOOL THIS EVENING. NOP VOID YET SINCE BASSAM OLIVA'Sergio AROUND 1700 PER REPORT. WEARS BRIEF. CALL LIGHT IN REACH. BED ALARM SET. NO RESP DISTRESS.
[2020-09-14 00:10] VITALS: BP 115/85; PULSE 77; TEMP 98.2
--- NOTE | 2020-09-14 04:04 | NUR ---
PT HAS HAD X2 INCONTINENT STOOLS AND NO VOIDS. CHECKED BLADDER SCAN AND HAD >800CC RETENTION. ATTEMPTED TO NOTIFY CHEIKH MYERS. NO ANSWER. WILL ATTEMPT AGAIN.
[2020-09-14 04:07] VITALS: BP 164/75; PULSE 67; TEMP 98.7
--- NOTE | 2020-09-14 04:40 | NUR ---
#16FR CATH INSERTED TO BLADDER FOR RETENTION. 800CC OF HAZY YELLOW URINE NOTED. PT BRODY WELL. FEL BACK TO SLEEP. NO DISTRESS. CALL LIGHT IN REACH. BED ALARM SET.
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
--- NOTE | 2020-09-14 13:56 | NUR ---
VIET met with the patient, his (Tash), and son-in-law (Mert Wayne) to complete intake, as the patient is new to [facility]. The patient lives in [place] with his , daughter (Guerline, ph#[phone]), and son-in-law. Tash reports that the patient was independent with ADLs before hospitalization and that he has a cane. The patient's PCP is Maday Costa with the [facility] and he receives his medications through the [facility] and [facility]. The patient does not have a DPOA-HC. The patient and his family were not interested in completing a DPOA-HC at this time. Tash reports that the best way to get in contact with her is by calling her daughter, Guerline. The patient's family reports that they are trying to get a Financial DPOA to be able to have access to the patient's bank accounts. Tash reports that they need to pay rent, but that she is not on the patient's account and cannot access their money. She informed VIET that they bank through [employer] in [place]. VIET contacted Jada in client care at [employer] and had her on speaker phone in the patient's room. The patient's and son-in-law were present. Jada reports that the patient's is on his account there and has access to their funds. Atul then informed VIET that the patient also has a VA debit card that gets money deposited on it every month. They state that the patient goes there to withdrawal davison from the card and uses the davison to pay rent. The debit card has the patient's name on it. Jada reports that since the card has the patient's name on it, then they would not be able to withdrawal davison from it, if only the patient's brought it in. The patient would need to be there. Atul verbalized understanding. VIET encouraged the patient to talk to their landlord. VIET also obtained a phone number from the ID, ph# , where the can change direct deposit options and can then have his funds deposited into an existing bank account. The patient's son-in-law was contacting that number. The patient's had no other questions for at this time. then contacted the patient's daughter, Guerline, to follow up about the phone call. Guerline reports that she has not talked to [place] yet and is unsure how that conversation with. She states that she will contact after she follows up with him after she gets off work.
[2020-09-14 17:01] LABS: COLLECTION METHOD CATHETER
[2020-09-14 17:24] LABS: MUCOUS Present /lpf; PH 6 (5-8); SQUAMOUS EPITHELIAL 0-2 /hpf; URINE APPEARANCE Hazy; URINE BACTERIA None Seen /hpf; URINE BILIRUBIN Negative (NEGATIVE); URINE BLOOD 3+ (NEGATIVE); URINE COLOR Yellow; URINE GLUCOSE 2+ (NEGATIVE); URINE KETONE Negative (NEGATIVE); URINE LEUKOCYTE ESTERASE Negative (NEGATIVE); URINE NITRATE Negative (NEGATIVE); URINE PROTEIN(semi-quant) 2+ (NEGATIVE); URINE RBC >50 /hpf; URINE UROBILINOGEN >=4.0 mg/dL (NEGATIVE)
[2020-09-14 17:35] VITALS: BP 147/65; PULSE 78; TEMP 98.5
--- NOTE | 2020-09-14 18:30 | NUR ---
Patient was not able to void this afternoon. We bladder scanned him and he had [address] in his bladder. Notified Dr Sutton, he ordered a catheter. 18fr kramer catheter placed. No issues with placing kramer. Hodan, hazy colored urine retured. Patient tolerated well. 10ml placed in catheter balloon. Cath care provided after placing kramer. Patient got sick with supper. He stated it taste good but denies vomitting his food. It was on table. We cleaned him up and cleaned up the mess. Notified A Radu GALLAGHER, she ordered phenergan. No other changes at this time Call light within reach. Bed alarm on.
--- NOTE | 2020-09-14 21:00 | NUR ---
PT RESTING IN BED. CONFUSED X4. UNABLE TO FOLLOW MOST DIRECTIONS. ABLE TO TAKE PILLS WITH H20. CALL LIGHT IN REACH. BED ALARM SET.
[2020-09-15 06:00] VITALS: BP 156/98; PULSE 76; TEMP 99.2
--- NOTE | 2020-09-15 06:04 | NUR ---
BASSAM UO WAS 400 SL CONCENTRATED MG. ENC NECTAR THICK LIQUIDS THIS AM.
[2020-09-15 07:22] LABS: BASO % 0.6 % (0.0-2.0); EOS # 0.1 (0.0-0.7); EOS % 2.5 % (0-4.0); GRAN # 2.9 (1.4-6.5); GRAN % 61.9 % (42.2-75.2); LYMPH # 1.2 (1.2-3.4); LYMPH % 24.5 % (20.0-51.0); MEAN CELL VOLUME 88 fl (80.0-100.0); MEAN CORPUSCULAR HGB CONC 32 g/dl (33.0-37.0); MEAN PLATELET VOLUME 9.8 fl (7.4-10.4); MONO # 0.5 (0.1-0.6); MONO % 10.3 % (1.7-9.3); PLATELET COUNT 344 K/mm3 (130-400); RED BLOOD COUNT 3.31 M/mm3 (4.20-5.60); REDCELL DISTRIBUTION WIDTH-CV 14.6 % (11.5-14.5)
[2020-09-15 07:23] LABS: HEMOGLOBIN 9.4 g/dl (13.5-18.0); MEAN CORPUSCULAR HEMOGLOBIN 28 pg (27.0-31.0)
[2020-09-15 07:32] LABS: CALCIUM 8.5 mg/dL (8.4-10.2); CREATININE, serum 0.99 (0.66-1.25); MAGNESIUM 2.1 mg/dL (1.6-2.3); POTASSIUM 3.5 mmol/L (3.4-5.0)
[2020-09-15 18:20] VITALS: BP 137/71; PULSE 76; TEMP 98.4
[2020-09-15 19:55] VITALS: BP 125/70; PULSE 80; TEMP 98.5
--- NOTE | 2020-09-15 20:01 | NUR ---
Patient attended all therapies this shift. He was very confused when communicating throughout the day. Patient was tearful at times when family visited. Patient had an assisted fall to the floor when using the bathroom this afternoon when family was here visiting. See Fall report. Patient has his kramer catheter in place. Family received some clothing from family this afternoon. These were placed in his cabinet. Patient denied pain this shift. He had an EKG this morning prior to receiving his SOTOL per order. Patient had a swollow study completed, but know changes were made to his diet order. He will continue on [facility] soft, nectar thick liquids. Patient currently resting in bed, call light in reach and bed alarm set. Reported off to night nurse.
--- NOTE | 2020-09-15 23:35 | NUR ---
Pt has been more alert.He is resting. He follows commend. Will continue to monitor.
[2020-09-16 05:30] VITALS: BP 150/73; PULSE 81; TEMP 98.4
--- NOTE | 2020-09-16 08:44 | NUR ---
Pt sleeping upon entry to room, easily awakened. Expressed a desire to return home. Shift assessments complete, left Pt in bed, call light in reach, alarm on.
[2020-09-16 17:26] VITALS: BP 143/70; PULSE 75; TEMP 97.6
--- NOTE | 2020-09-16 21:23 | NUR ---
MR. Chairez has been ok but refused diner. He rated his pain 0/10. will continue to monitor.
[2020-09-17 05:29] VITALS: BP 166/78; PULSE 76; TEMP 97.9
[2020-09-17 15:09] VITALS: BP 135/77; PULSE 73; TEMP 97.3
--- NOTE | 2020-09-17 19:38 | NUR ---
RECEIVED CHANGE OF SHIFT REPORT FROM DAY SHIFT NURSE. BED ALARM ON. BASSAM IN PLACE.
--- NOTE | 2020-09-17 20:30 | NUR ---
PATIENT ORIENTED TO PERSON/, WITH COMMENTS DURING CONVERSATION THAT WAS APPROPRIATE AT TIMES. SPEECH IS CLEAR AND FOLLOWS COMMANDS. PATIENT IS [place] WITH L EAR HEARING AID AVAILABLE FOR PATIENT USE. BANEGAS IN PLACE. DENIES DISCOMFORT OR NEEDS AT THIS TIME. PATIENT WITH GENERALIZED WEAKNESS, NEEDING ASSISTANCE WHEN REPOSITIONING IN BED.
--- NOTE | 2020-09-17 23:11 | NUR ---
COMPLAINTS OF FEET "ARE ICE COLD". THERMOSTAT IN ROOM INCREASED TO HEAT RANGE WITH BED SPREAD PLACED ON BED/COVERING PATIENT. PATIENT DENIES ANY OTHER NEEDS AT THIS TIME. BED ALARM ON, CALL LIGHT WITHIN REACH.
--- NOTE | 2020-09-17 23:51 | NUR ---
PATIENT SLEEPING, DOES NOT WAKE WHEN STAFF ENTER ROOM. BREATHING NONLABORED AND EVEN. BED ALARM ON, CALL LIGHT WITHIN REACH.
--- NOTE | 2020-09-18 02:08 | NUR ---
PATIENT AWAKE WHEN STAFF ENTERED ROOM WITH PATIENT SAYING "THANK GOODNESS, THE NURSES DOWNSTAIRS ARE GOING CRAZY... I WAS LEFT ALONE HERE....I AM COUGHING AND I CAN'T BRING ANYTHING UP" WHEN ASKED IF IN PAIN, PATIENT INDICATED HIS ABD STATING "HERE". SEE MAR FOR PAIN MED GIVEN. PATIENT THEN DENIED ANY FURTHER NEEDS FOR CONCERNS OR QUESTIONS OR COMPLAINTS AT THIS TIME.
--- NOTE | 2020-09-18 03:56 | NUR ---
PATIENT SLEEPING, DOES NOT WAKE WHEN STAFF ENTER ROOM. BED ALARM ON, CALL LIGHT WITHIN REACH. BANEGAS IN PLACE. BREATHING NONLABORED AND EVEN.
[2020-09-18 05:09] VITALS: BP 164/76; PULSE 80; TEMP 98.2
--- NOTE | 2020-09-18 07:16 | NUR ---
CHANGE OF SHIFT REPORT GIVEN TO DAY SHIFT NURSENEO RN.
--- NOTE | 2020-09-18 08:00 | NUR ---
Patient laying in bed awake. VSS 2L NC . Nurse asked the patient how he was doing and the patient stated "that he didnt know" Patient also stated that he wasnt going to take his am medication, but the nurse was able to get the patient to agree to take them. Patient stating that he was done and that he was depressed. Nurse assisted am medication with sugar free jello and patient tolerated well. No further needs expressed from the patient. Patient waiting for therapy to start. Call light within reach. Bed alarm on
[2020-09-18 17:35] VITALS: BP 124/64; PULSE 76; TEMP 98.2
--- NOTE | 2020-09-18 17:46 | NUR ---
Patient spent the day in bed. Therapy worked with patient in the bed and did not get up to the recliner. Patient had several incontinent BM's. VSS. Denies pain and discomfort. Oliva dependent drainage. Nursing staff assisted with repositioning patient. Nursing staff encouraging PO intake. Call light within reach. Bed alarm on
--- NOTE | 2020-09-18 18:36 | NUR ---
RECEIVED CHANGE OF SHIFT REPORT FROM DAY SHIFT NURSE. BED ALARM ON WHEN IN BED, CALL LIGHT WITHIN REACH.
[2020-09-19 05:58] VITALS: BP 158/65; PULSE 72; TEMP 98
--- NOTE | 2020-09-19 06:30 | NUR ---
Report received from AURA Pope. Patient is sleeping in bed. Bedside table and call light are within reach. Will continue to monitor patient throughout shift.
--- NOTE | 2020-09-19 07:21 | NUR ---
CHANGE OF SHIFT REPORT GIVEN TO DAY SHIFT NURSES, YONNY RN AND WESTON CHAVARRIA.
[2020-09-19 07:48] VITALS: BP 153/83; PULSE 84; TEMP 98
[2020-09-19 11:39] VITALS: BP 115/67; PULSE 91; TEMP 98
--- NOTE | 2020-09-19 13:38 | NUR ---
Admission QIM scores were reviewed by the team. Code of 4 chosen for eating was determined by team discussion to be the most usual performance for this patient during the assessment period. Code of 2 chosen for sit to lying was determined by team discussion to be the most usual performance for this patient during the assessment period. Code of 2 chosen for lying to sitting on side of bed was determined by team discussion to be the most usual performance for this patient during the assessment period. Code of 1 for sit to stand was determined by team discussion to be the most usual performance for this patient during the assessment period. Code of 1 for chair/bed to chair transfers was determined by team discussion to be the most usual performance for this patient during the assessment period.--Sidra March,
--- NOTE | 2020-09-19 14:58 | NUR ---
Patient's reported the reason her may be crying all the time is because he has been on Xanax for the last 20 years. [facility] for it and he had one for 1mg tab x TID and was told he last had it refilled and picked up at the end of July. This nurse called PREST[facility] French to see if we could get the patient started on Xanax again and she stated she would review his records to see if he needs to be on it or not.
--- NOTE | 2020-09-19 16:33 | NUR ---
Inspecting Machine Adjuster met with the patient and his , Tash to follow up. The patient would like to be adjusted in bed. SW collaborated the above information with the patient's nurse. There are no additional needs at this time.
[2020-09-19 18:00] VITALS: BP 129/93; PULSE 62; TEMP 97.3
--- NOTE | 2020-09-19 19:14 | NUR ---
Patient attended all therapy. Tolerated diet well. Patient is independent with eating. Patient is independent with eating but requires clean up. Patient is in bed. Call light and bedside table are within reach.
--- NOTE | 2020-09-19 19:15 | NUR ---
RECEIVED CHANGE OF SHIFT REPORT FROM DAY SHIFT NURSE. BED ALARM ON WHILE IN BED, CALL LIGHT WITHIN REACH. BANEGAS CATHETER IN PLACE.
--- NOTE | 2020-09-19 20:30 | NUR ---
PATIENT DENIES CHEST PAIN/SOA AT THIS TIME. DENIES NAUSEA AT THIS TIME. BANEGAS IN PLACE, DRAINING MEDIUM MG URINE WITH NO SEDIMENT OBSERVED IN TUBING. BED ALARM ON WITH CALL LIGHT WITHIN REACH.
[2020-09-20 05:20] VITALS: BP 138/63; PULSE 77; TEMP 97.7
--- NOTE | 2020-09-20 06:30 | NUR ---
Report received from AURA Pope. Patient is sleeping in bed. Call light and bedside table are within reach. Will continue to monitor patient throughout shift.
--- NOTE | 2020-09-20 07:07 | NUR ---
CHANGE OF SHIFT REPORT GIVEN TO DAY SHIFT NURSES, GEOFFREY CHAVARRIA AND WESTON CHAVARRIA.
[2020-09-20 17:10] VITALS: BP 137/65; PULSE 80; TEMP 98.5
--- NOTE | 2020-09-20 18:43 | NUR ---
Patient's daughter called and wanted an update following the care plan meeting this morning. She will be calling back tomorrow if she does not get a call from Social Work in the morning. She reported that her dad has a fear of hospitals and she and her dad want to know what the plan is for when he is going to go home.
[2020-09-21 04:53] VITALS: BP 137/75; PULSE 85; TEMP 98
--- NOTE | 2020-09-21 09:08 | NUR ---
Pt assessment complete. Pt is laying in bed upon entry, just completed therapy with speech. He is A/O x4. His breathing is even and unlabored on RA. Pt denies SOB. Does have a wet cough. Denies any pain besides a sore bottom, discussed repositioning with patient. No N/V, but did not like breakfast this morning. Took pills without issue whole with nectar thick liquids. No needs at this time. Pj MARINA. Call light within reach.
--- NOTE | 2020-09-21 09:42 | NUR ---
Pt sleeping in bed at this time.
--- NOTE | 2020-09-21 11:09 | NUR ---
The patient's daughter, Guerline Wayne # [phone] contacted this Bee[employer] Supervisor regarding the patient update. Guerline requested a team conference note be emailed to her, it was emailed. Guerline had some concerns regarding patient care. VIET informed Sidra, DALIA director. VIET discussed family meeting for next Wednesday 09/27 at 1330. She was in agreenace. The attendees will be the patient's and Guerline's . VIET informed Guerline that the meeting time would be subject to change. She was in agreeance. There are no additional needs at this time.
[2020-09-21 15:35] VITALS: BP 107/53; PULSE 89; TEMP 98.1
--- NOTE | 2020-09-21 16:26 | NUR ---
Urine very dark almost a coca cola color, discussed with Trinh. No new orders will monitor for now.
--- NOTE | 2020-09-21 18:08 | NUR ---
Pt had three incontinent episodes of soft stool. Reports his stomach is turning tonight during dinner. Encouraged to try and eat and drink, thickened gatorade provided. Pt reports pain to coccyx area, repositioned frequently. Oliva DD. Call light within reach.
--- NOTE | 2020-09-21 21:00 | NUR ---
PT AGITATED ABOUT STAFF COMING TO CHECK HIS BLOOD SUGAR. WAS GOING TO REFUSE HIS HS MEDICATIONS THEN AGREED TO TAKE. ALLOWED PT TO VENT. CALMER NOW. MORE COMPLIANT. PT WANTS TO BE LEFT ALONE. DISCUSSED WITH PT STAFF WOULD BE MAKING ROUNDS FOR PT SAFETY. PT AGREED. CALL LIGHT IN REACH. BED ALARM SET.
[2020-09-22 05:16] VITALS: BP 134/64; PULSE 75; TEMP 98.1
--- NOTE | 2020-09-22 06:30 | NUR ---
Report received from AURA Barnes. Patient is sleeping in bed. Call light and bedside table are within reach. Will continue to monitor patient throughout shift.
[2020-09-22 13:24] LABS: BASO % 0.2 % (0.0-2.0); EOS % 0.3 % (0-4.0); GRAN # 8.2 (1.4-6.5); GRAN % 80.3 % (42.2-75.2); HEMATOCRIT 33.8 % (42.0-52.0); HEMOGLOBIN 10.9 g/dl (13.5-18.0); LYMPH # 1.3 (1.2-3.4); LYMPH % 12.3 % (20.0-51.0); MEAN CELL VOLUME 89 fl (80.0-100.0); MEAN CORPUSCULAR HEMOGLOBIN 29 pg (27.0-31.0); MEAN CORPUSCULAR HGB CONC 32 g/dl (33.0-37.0); MEAN PLATELET VOLUME 9.2 fl (7.4-10.4); MONO # 0.6 (0.1-0.6); MONO % 6.3 % (1.7-9.3); PLATELET COUNT 454 K/mm3 (130-400); REDCELL DISTRIBUTION WIDTH-CV 16.5 % (11.5-14.5)
[2020-09-22 13:34] LABS: CALCIUM 9.2 mg/dL (8.4-10.2); MAGNESIUM 1.8 mg/dL (1.6-2.3); POTASSIUM 4.1 mmol/L (3.4-5.0)
[2020-09-22 15:15] VITALS: BP 126/66; PULSE 83; TEMP 98.7
--- NOTE | 2020-09-22 16:08 | NUR ---
Instrumentation Technician contacted the patient's daughter, Guerline to follow up before the weekend. She has no questions at this time.
--- NOTE | 2020-09-22 18:30 | NUR ---
Patient had loose BM x 3 today. Patient states he is normally not incontinent of bowel but he thought he had gas but it was stool. This nurse told patient to continue to let staff know when he had another episode to avoid skin breakdown. Patient agreed. Will continue to monitor patient throughout shift. Call light and bedside table are within reach and bed alarm is on.
--- NOTE | 2020-09-22 21:00 | NUR ---
PT RESTING IN BED. CALM AND COOPERAITVE. ALITTLE FORGETFUL.
[2020-09-23 05:06] VITALS: BP 123/72; PULSE 81; TEMP 98.2
[2020-09-23 07:04] VITALS: BP 144/68; PULSE 79; TEMP 97.5
--- NOTE | 2020-09-23 08:10 | NUR ---
Patient sitting up in bed. VSS. Reports that he ate all that he can from breakfast. Denies pain and discomfort. Nurse informed of the time for group therapy, the patient stated "take it down". No further needs expressed from the patient. Call light within reach. Bed alarm on
[2020-09-23 11:20] VITALS: BP 123/61; PULSE 99; TEMP 97.3
[2020-09-23 15:45] VITALS: BP 109/63; PULSE 85; TEMP 98.4
--- NOTE | 2020-09-23 17:52 | NUR ---
Family at the bedside visiting the patient and assisting the patient with dinner. Patient did not participate in group therapy today. Patient has had several loose stools and needed assistance with cleaning up. Nursing staff encouraging the patient to increase PO intake. VSS. Denies pain and discomfort. Oliva intact, dependent drainage, brown in color. Call light within reach. Bed alarm on. No further needs
--- NOTE | 2020-09-23 21:09 | NUR ---
PATIENT IS RESTING IN BED.DUE MEDS GIVEN.DENIES PAIN.SAFETY MEASURES IN PLACE. NO OTHER NEEDS AT THIS TIME.
[2020-09-24 05:09] VITALS: BP 130/69; PULSE 84; TEMP 97.8
--- NOTE | 2020-09-24 06:10 | NUR ---
PATIENT HAD UNEVENTFUL NIGHT.BANEGAS CATHETER IN PLACE.STILL HAS DARK URINE.DENIES PAIN.NO OTHER NEEDS AT THIS TIME.
--- NOTE | 2020-09-24 08:54 | NUR ---
Patient sitting up in bed. He reports a good breakfast. States he has low back pain-tyelnol PRN given & kpad provided for comfort, but he was only willing to take as long as it would not delay his discharge home. Patient repositioned in bed. Pj to LAINA with paulie output. Will monitor.
--- NOTE | 2020-09-24 13:26 | NUR ---
Patient did well with lunch. Merchandise Complaint Adjuster assisted with hygiene. Patient refused to change into clean shirt
--- NOTE | 2020-09-24 16:01 | NUR ---
Patient has visitors at bedside. They brought in clean clothing for patient.
[2020-09-24 16:54] VITALS: BP 140/75; PULSE 92; TEMP 98.1
--- NOTE | 2020-09-24 17:44 | NUR ---
Patient repositioned in bed. Tolerated dinner. Will monitor & report off to night nurse
--- NOTE | 2020-09-24 21:00 | NUR ---
PT RESTING IN BED. CALM AND COOPERATIVE. DENIES NEEDS AT THIS TIME. CALL LIGHT IN REACH.
[2020-09-25 05:32] VITALS: BP 139/70; PULSE 83; TEMP 98.1
--- NOTE | 2020-09-25 06:09 | NUR ---
PT TAKING PILLS WHOLE WITH NECTAR THICK LIQUIDS W/O DIFFICULTY.
[2020-09-25 06:28] LABS: BASO # 0.1 (0.0-0.2); BASO % 1.1 % (0.0-2.0); EOS # 0.1 (0.0-0.7); EOS % 1.1 % (0-4.0); GRAN # 4.1 (1.4-6.5); GRAN % 66.6 % (42.2-75.2); HEMOGLOBIN 11.2 g/dl (13.5-18.0); LYMPH # 1.4 (1.2-3.4); LYMPH % 21.7 % (20.0-51.0); MEAN CELL VOLUME 90 fl (80.0-100.0); MEAN CORPUSCULAR HEMOGLOBIN 29 pg (27.0-31.0); MEAN CORPUSCULAR HGB CONC 32 g/dl (33.0-37.0); MEAN PLATELET VOLUME 9.5 fl (7.4-10.4); MONO # 0.6 (0.1-0.6); MONO % 9.2 % (1.7-9.3); PLATELET COUNT 375 K/mm3 (130-400); RED BLOOD COUNT 3.86 M/mm3 (4.20-5.60); REDCELL DISTRIBUTION WIDTH-CV 16.6 % (11.5-14.5)
[2020-09-25 06:30] LABS: HEMATOCRIT 34.7 % (42.0-52.0)
--- NOTE | 2020-09-25 06:30 | NUR ---
Report received from AURA Barnes. Patient is resting comfortably in bed. Call light and bedside table are within reach. Will continue to monitor patient throughout shift.
[2020-09-25 06:35] LABS: CREATININE, serum 0.8 (0.66-1.25); MAGNESIUM 1.8 mg/dL (1.6-2.3); POTASSIUM 4.1 mmol/L (3.4-5.0)
--- NOTE | 2020-09-25 18:16 | NUR ---
This afternoon upon entry in to pt's room when asked if they need anythign he stated that he "wanted to sign the AMA papers and leave". I asked why and he discussed his problems with FEES test tomorrow with ST. Called Maddy in ST and she talked to pt, they decided to cancel the test tomorrow. Pt then stated he wanted kramer catheter out. Called PRESTON Tsang with hospitalist and she agreed to remove catheter. Pt still expressed wish to leave AMA. Dr. Sutton came to talk to pt and discussed risks and dangers of leaving especially with the lack of bed availability that exists at this time. Daughter here to discuss with pt and she was visibly upset. Pt then decided it was in his best interest to stay and has been agreeable since. Kramer was removed by RN, pericare parovided, baloon intact, urinal provided and pt educated on bladder training. Will give bedside shift report to nightshift nurse who will resume care.
[2020-09-25 18:22] VITALS: BP 148/73; PULSE 76; TEMP 98
--- NOTE | 2020-09-25 19:06 | NUR ---
RECEIVED CHANGE OF SHIFT REPORT FROM DAY SHIFT NURSE. BED ALARM ON, CALL LIGHT WITHIN REACH.
--- NOTE | 2020-09-26 | NUR ---
PATIENT SLEEPING, DOES NOT WAKE WHEN STAFF ENTER ROOM. BREATHING NONLABORED AND EVEN. BED ALARM ON, CALL LIGHT WITHIN REACH.
--- NOTE | 2020-09-26 01:25 | NUR ---
SLEEPING, DOES NOT WAKE WHEN ROOM ENTERED BY STAFF. BED ALARM ON, CALL LIGHT WITHIN REACH.
[2020-09-26 05:00] VITALS: BP 117/74; PULSE 83; TEMP 98.3
--- NOTE | 2020-09-26 06:30 | NUR ---
REPORT RECEIVED FROM AURA MCGOWAN. PATIENT IS RESTING IN BED. CALL LIGHT AND BEDSIDE TABLE ARE WITHIN REACH. WILL CONTINUE TO MONITOR PATIENT THROUGHOUT SHIFT.
[2020-09-26 06:55] VITALS: BP 144/72; PULSE 78; TEMP 98
--- NOTE | 2020-09-26 07:00 | NUR ---
CHANGE OF SHIFT REPORT GIVEN TO DAY SHIFT NURSE, GEOFFREY CHAVARRIA.
[2020-09-26 11:30] VITALS: BP 141/69; PULSE 86; TEMP 97.7
--- NOTE | 2020-09-26 14:38 | NUR ---
PATIENT IS RESTING IN BED AND TALKING TO THE TRACK REPAIR LABORER. PATIENT HAS A GOOD DISPOSITION AND ALL THERAPIES ARE COMPLETE. WILL CONTINUE TO MONITOR PATIENT THROUGHOUT SHIFT.
--- NOTE | 2020-09-26 16:21 | NUR ---
Attempted to call daughter, Guerline, to notify her of the change in visitor policy. No answer and was not able to leave a message
[2020-09-26 16:23] VITALS: BP 141/72; PULSE 93; TEMP 98
--- NOTE | 2020-09-26 16:50 | NUR ---
The patient's family meeting on 09/27 will need to be moved to 1300 vs 1330. Life Enrichment Director contacted the patient's daughter, Guerline. She was in agreeance. She will be present at the meeting. VIET collaborated the above information with DALIA Valente Director.
--- NOTE | 2020-09-26 19:01 | NUR ---
RECEIVED CHANGE OF SHIFT REPORT FROM DAY SHIFT NURSE. BED ALARM ON WHEN IN BED, CALL LIGHT WITHIN REACH.
--- NOTE | 2020-09-26 22:00 | NUR ---
PATIENT DID NOT WANT TO BE WAKEN FOR TOILET TRAINING IF HE WAS ASLEEP DURING THE NIGHT. DENIES CHEST PAIN/SOA/NAUSEA AT THIS TIME. UP WITH ASSIST X1. BED ALARM ON WHEN IN BED WITH CALL LIGHT WITHIN REACH.
--- NOTE | 2020-09-26 23:45 | NUR ---
DENIES URGE TO VOID, REFUSED OFFER TO ASSIST WITH AMBULATION TO BATHROOM FOR TOILET TRAINING. BED ALARM ON, CALL LIGHT WITHIN REACH.
--- NOTE | 2020-09-27 01:00 | NUR ---
PATIENT SLEEPING, DOES NOT WAKE WHEN STAFF ENTER ROOM. BREATHING NONLABORED/EVEN. BED ALARM ON WITH CALL LIGHT WITHIN REACH.
--- NOTE | 2020-09-27 03:30 | NUR ---
PATIENT SLEEPING, DOES NOT WAKE WHEN STAFF ENTER ROOM. RESPIRATIONS NONLABORED AND EVEN. BED ALARM ON WITH CALL LIGHT WITHIN REACH.
[2020-09-27 04:17] VITALS: BP 139/69; PULSE 70; TEMP 97.8
--- NOTE | 2020-09-27 06:30 | NUR ---
REPORT RECEIVED FROM AURA MCGOWAN. PATIENT IS SLEEPING IN BED CALL LIGHT AND BEDSIDE TABLE ARE WITHIN REACH. WILL CONTINUE TO MONITOR PATIENT THROUGHOUT SHIFT.
--- NOTE | 2020-09-27 06:56 | NUR ---
CHANGE OF SHIFT REPORT GIVEN TO DAY SHIFT NURSE, GEOFFREY CHAVARRIA.
--- NOTE | 2020-09-27 11:40 | NUR ---
This nurse spoke with patient about not being compliant with OT. Patient stated he did not want to take a shower beause he only takes one shower a month and since he already took a sponge bath he did not want to take a shower. THis nurse explained to the patient the importance of being compliant with all treatment. Patient apologized for his behavior. We discussed his progress and how the staff wants the best for him going foward. Patient agreed but stated he just wants to go home. When patient's daughter arrived this nurse explained to her what happened and asked her to talk with her father about the importance of safety and complying with all of his treatment. Daugther agreed.
--- NOTE | 2020-09-27 12:57 | NUR ---
Bedding change due to patient spilling urinal in bed.
--- NOTE | 2020-09-27 13:42 | NUR ---
Data Management attended family meeting, the patient's daughter Guerline was present. Those present Sidra, IPR Director, PT/OT/ST staff. Sidra began the meeting with stating it's purpose. The PT/OT/ST staff discussed the patient's progess and answered all questions. The team has set discharge date of Friday, 10/04 with home health and a FWW. Guerline states the patient has a FWW. VIET will not need to order one. VIET emailed [email or web address]'s home health list to Guerline. She will review the list then inform VIET of choice.
--- NOTE | 2020-09-27 15:38 | NUR ---
Patient is resting in bed and talking with SALMA Wright. Patient has completed all therapy for the day and has a pleasant disposition. Call light and bedside table are within reach. Will continue to monitor patient throughout shift.
[2020-09-27 17:55] VITALS: BP 132/73; PULSE 99; TEMP 98.3
--- NOTE | 2020-09-27 21:00 | NUR ---
PT RESTING IN BED. REPOSITIONED TO LT SIDE FOR COMFORT. PT DENIES NEED TO VOID. DRY AT THIS TIME. CALL LIGHT IN REACH BED ALARM SET.
--- NOTE | 2020-09-28 02:30 | NUR ---
PT VOIDED SOME IN URIANL AND SOME INCONTINENT. BLADDER SCANNED BY LABORATORY ENGINEER FOR RETENTION. HAD ONLY 181CC RESIDUAL.
[2020-09-28 04:12] VITALS: BP 159/81; PULSE 93; TEMP 98.3
--- NOTE | 2020-09-28 08:27 | NUR ---
Patient resting in bed, call light in reach and bed alarm set. Denies pain at this time.
--- NOTE | 2020-09-28 10:52 | NUR ---
Patient resting at group therapy at this time. Denies pain this morning. Tolerating diet well. Will continue to monitor.
--- NOTE | 2020-09-28 16:07 | NUR ---
Edging Machine Operator met with the patient to present the Team Conference Note. The patient will give the note to his daughter. The patient has no other needs at this time. Still awaiting the choice for home health.
[2020-09-28 18:00] VITALS: BP 132/65; PULSE 85; TEMP 98.3
--- NOTE | 2020-09-28 20:15 | NUR ---
Patient attended all therapies today. Tolerated diet well. Had good urine output this shift. Denied any pain or questions. See new orders to restart Eliquis per PA. His next CBC was ordered for 09/29/20. Reported off to night nurse.
--- NOTE | 2020-09-28 21:00 | NUR ---
PT RESTING IN BED. NO NEEDS. VISITIONG. IN GOOD HUMOR. CALL LIGHT IN REACH. BED ALALRM SET.
--- NOTE | 2020-09-29 05:39 | NUR ---
PT INCONT ON SHEETS. MISSED URINAL. LINENS CHANGED. HAS LOOSE NONPRODUCIVE COUGH AT TIMES. PT CHANGED INTO GOWN. NO HOME CLOTHES AVAILABLE UNTIL COMES IN TODAY.
[2020-09-29 05:40] VITALS: BP 128/72; PULSE 87; TEMP 98.2
[2020-09-29 06:40] LABS: HEMOGLOBIN 10.5 g/dl (13.5-18.0); MEAN CELL VOLUME 90 fl (80.0-100.0); MEAN CORPUSCULAR HEMOGLOBIN 29 pg (27.0-31.0); MEAN CORPUSCULAR HGB CONC 32 g/dl (33.0-37.0); MEAN PLATELET VOLUME 9.4 fl (7.4-10.4); PLATELET COUNT 289 K/mm3 (130-400); RED BLOOD COUNT 3.62 M/mm3 (4.20-5.60); REDCELL DISTRIBUTION WIDTH-CV 16.1 % (11.5-14.5)
[2020-09-29 06:42] LABS: HEMATOCRIT 32.7 % (42.0-52.0)
--- NOTE | 2020-09-29 08:03 | NUR ---
Pt assessment complete. Pt is sitting up in bed reading upon entry, he is A/O x4. Pleasant with cares. His breathing is even and unlabored on RA. Pt denies SOB at rest, did become dyspneic on exertion to the restroom, sink and back to bed. Denies pain at this time. He did have a large BM in the restroom. No further needs at this time. Call light within reach.
--- NOTE | 2020-09-29 11:55 | NUR ---
Visited w/ pt & daughter, Guerline. Pt stated he is doing well. Daughter stated that pt's is going to be admitted for observation. Did inquire if she got the Home Health list, which she acknowledge she did but doesn't know what to do w/ it. Told her that her & pt just need to decide which one they would like to use & then SW will set that up for them. Did inform them that this screen writer will now be their SW & provided her the number. They did not have any other questions or concerns at this time.
[2020-09-29 16:58] VITALS: BP 128/61; PULSE 93; TEMP 98.2
--- NOTE | 2020-09-29 18:26 | NUR ---
Pt sat in the chair a couple times today, prefers the bed. Encouraged to shift weight d/t redenned bottom. Pt able to walk to the restroom with walker and SBA, transferred well. Did assist with final pericare, but patient mostly independent with this. Pt wheeled down to see his on the medical unit this afternoon. No needs at this time. Call light within reach.
--- NOTE | 2020-09-29 21:30 | NUR ---
PATIENT IS CALM IN THE ROOM.DUE MEDS GIVEN.DENIES PAIN.SAFETY MEASURES IN PLACE.NO OTHER NEEDS AT THIS TIME.
[2020-09-30 06:14] VITALS: BP 144/74; PULSE 85; TEMP 97.6
--- NOTE | 2020-09-30 06:16 | NUR ---
PATIENT HAD UNEVENTFUL NIGHT.DENIES PAIN.SAFETY MEASURES IN PLACE.NO OTHER NEEDS AT THIS TIME.
--- NOTE | 2020-09-30 08:46 | NUR ---
Patient resting in bed, call light in reach and bed alarm set. Will continue to monitor.
--- NOTE | 2020-09-30 14:43 | NUR ---
Patient decided against going to Group Therapy this morning. He is tolerating his Regular diet with thin liquids. He does have some coughing at times, but lungs were clear this morning. Will continue to monitor.
[2020-09-30 15:15] VITALS: BP 137/68; PULSE 89; TEMP 98.8
[2020-10-01 06:09] VITALS: BP 157/73; PULSE 80; TEMP 98
--- NOTE | 2020-10-01 06:20 | NUR ---
PT IN BED. NO N/V. NO c/o PAIN OR HEADACHE. LUNGS DIMINISHED IN BASES. NO DYSPNEA REPORTED.
--- NOTE | 2020-10-01 10:33 | NUR ---
Patient resting in bed, independent with eating. Denies questions this morning.
--- NOTE | 2020-10-01 14:12 | NUR ---
Walked patient around the surgical area with walker and gait belt. Daughter joined patient for this walk. Patient was a SBA with walker with toilet transfer. He was independent with eating this shift. Patient's bedding was changed this afternoon.
[2020-10-01 15:11] VITALS: BP 131/64; PULSE 88; TEMP 98.5
--- NOTE | 2020-10-01 19:30 | NUR ---
RECEIVED CHANGE OF SHIFT REPORT FROM DAY SHIFT NURSE. PATIENT IN BED WITH BED ALARM ON, CALL LIGHT WITHIN REACH. DENIES ANY NEEDS AT TIME OF REPORT.
[2020-10-02 05:32] VITALS: BP 151/68; PULSE 81; TEMP 98.9
--- NOTE | 2020-10-02 07:40 | NUR ---
CHANGE OF SHIFT REPORT GIVEN TO DAY SHIFT NURSE, ANUM CHAVARRIA.
--- NOTE | 2020-10-02 11:23 | NUR ---
Patient alert and oriented, answers questions appropriately. See assessment. Lungs with in/expiratory wheezes noted in bases, clear in upper lobes. Respers even and unlabored, no c/o SOA. VSS. No c/o at this time.
--- NOTE | 2020-10-02 12:17 | NUR ---
Initial visit; Patient thanked Associate Professor Of Art History for looking in on him and offering God's blessings and to keep him in her prayers.
[2020-10-02 16:00] VITALS: BP 123/59; PULSE 87; TEMP 98.2
[2020-10-03 04:06] VITALS: BP 130/61; PULSE 66; TEMP 98.1
[2020-10-03 04:10] VITALS: BP 143/70; PULSE 85; TEMP 98.4
--- NOTE | 2020-10-03 04:35 | NUR ---
Patient is alert and oriented x4. He is comfortably lying and sleeping in bed. No complains overnight. Denies pain or SOB. Bed alarm is on and call light is within reach. Continue to follow.
--- NOTE | 2020-10-03 07:30 | NUR ---
PT SITTING UP IN BED AT THIS TIME. ASSESSMENT COMPLETED. PT IS INDEPENDENT IN THE ROOM. NO CONCERNS.
--- NOTE | 2020-10-03 10:13 | NUR ---
Visited w/ pt about his d/c for tomorrow, 10/04/20. Told him that SW has spoken w/ Dr. Sutton [facility]. Told him that SW still has not heard from his daughter regarding home health choice & he told SW he thought it was Interim but to double check w/ his daughter. Pt then talked about a variety of emotions about going home tomorrow, so we talked for quite a bit about the emotions & what he can do at home to continue to get better. Reviewed the Medicare Rights form & pt signed the form. He did not have any further questions/concerns at this time.
[2020-10-03] MEDS ORDERED: TRIAMCINOLONE A15 GM TP (12:09)
[2020-10-03] MEDS ORDERED: FLOMAX 0.40.4 MG/CAP PO (12:12)
[2020-10-03] MEDS ORDERED: ELIQUIS 5MG PO (12:12)
[2020-10-03] MEDS ORDERED: BETAPACE 80MG80 MG PO (12:13)
[2020-10-03] MEDS ORDERED: ZOCOR 80MG80 MG PO (12:18)
--- NOTE | 2020-10-03 13:10 | NUR ---
Contacted Pharmacy at [place]. Was informed that since pt was d/c'ing on new medications, the Red Team would have to approve this. Was transferred to Red Team & informed them of situation & was provided fax number of [phone]. Faxed scripts of new medication & H&P.
--- NOTE | 2020-10-03 13:16 | NUR ---
Contacted pt's daughter, Guerline, to inquire about home health. She informed SW that pt's if fine w/ using whoever the [facility] will [facility] for. Told her SW would contact the [facility] Red [facility] & make that request.
--- NOTE | 2020-10-03 13:22 | NUR ---
Contact [facility] to inquire about what is needed to initate Home Health request. Was transferred to nurse, who was not available so left message.
--- NOTE | 2020-10-03 14:11 | NUR ---
Received call from [facility] nurse. He explained what is needed for Home Health services to be authorized by ID, which will be orders of services needed w/ frequency & duration & D/C summary or recent progress notes. He requested the information be faxed to [phone].
--- NOTE | 2020-10-03 14:22 | NUR ---
Faxed the requested information to [facility] Red Team for home health.
[2020-10-03 15:39] VITALS: BP 119/63; PULSE 91; TEMP 98.4
--- NOTE | 2020-10-03 20:15 | NUR ---
Patient night dose meds wasn't able to scan, computer is not working. All meds cahrted in the computer.
--- NOTE | 2020-10-04 04:35 | NUR ---
Patient is awake,alert and oriented when RN assess him. RN told him that she will be back for his night meds. He gave attitude to RN in front of tech when Rn explained his medication. He said that he dont need his clonazepam because he does not take that for a long time. He ask if she is professionals in a very rude manner. RN explain to him that he should not talk to people that way specially those who takes care for him. RN and Tech left the room. He called after 1 hour and apologized. He asked for Tylenol and it was given. He gets up and walk the hallway and after that he went to bed by himself and sleep. Call light is within reach. Continue to follow.
[2020-10-04 05:06] VITALS: BP 112/67; PULSE 62; TEMP 97.9
--- NOTE | 2020-10-04 07:50 | NUR ---
Patient sitting up on edge of bed . Alert and oriented x 3. Assessment complete. Denies pain at this time. Denies further needs at this time.
--- NOTE | 2020-10-04 09:46 | NUR ---
Visited w/ pt regarding his d/c to home today, 10/04/20. Explained that SW had faxed his [facility] medication to [facility] yesterday, 10/03/20. Also told him that his daughter stated they wanted to use his [facility] benefits for home health so SW also contacted & faxed the [facility] the request for home health PT/OT/ST/nursing. Inquired if he had any questions, which he did not.
--- NOTE | 2020-10-04 10:51 | NUR ---
Received call from Christy at [facility]. She informed SW that the [facility] had [facility] about providing the requested [facility] health services for PT/OT/ST/nursing. Confirmed w/ her that is the team's request. She requested referral information. Faxed her the reqested information.
--- NOTE | 2020-10-04 11:10 | NUR ---
Discharge education provided to patient. Educated on when to call provider and scheduling follow up appointments. Patient educated on all new medications and medication changed. All questions answered. Denies further needs at this time.
--- NOTE | 2020-10-04 11:30 | NUR ---
Patient out by wheelchair with daughter. Reviewed education and medication changed with daughter at this time. Denies needs.
== END 2020-10-04 11:30 | disposition home health service (06) | DRG 177 ==
PROVIDERS: Physician Assistant; ADMIT Internal Medicine
DX: U07.1 COVID-19 (principal); J12.82 Pneumonia due to coronavirus disease 2019; J96.01 Acute respiratory failure with hypoxia; I21.A1 Myocardial infarction type 2; I48.92 Unspecified atrial flutter; R65.10 Systemic inflammatory response syndrome (SIRS) of non-infectious origin without acute organ dysfunction; E44.1 Mild protein-calorie malnutrition; G72.9 Myopathy, unspecified; E11.649 Type 2 diabetes mellitus with hypoglycemia without coma; L89.151 Pressure ulcer of sacral region, stage 1; I10 Essential (primary) hypertension; I25.10 Atherosclerotic heart disease of native coronary artery without angina pectoris; J44.9 Chronic obstructive pulmonary disease, unspecified; D64.9 Anemia, unspecified; R13.10 Dysphagia, unspecified; E03.9 Hypothyroidism, unspecified; F43.22 Adjustment disorder with anxiety; H91.90 Unspecified hearing loss, unspecified ear; R33.9 Retention of urine, unspecified; R00.1 Bradycardia, unspecified; E78.5 Hyperlipidemia, unspecified; R53.81 Other malaise; Z79.02 Long term (current) use of antithrombotics/antiplatelets; Z79.01 Long term (current) use of anticoagulants; Z79.82 Long term (current) use of aspirin; Z95.5 Presence of coronary angioplasty implant and graft; Z88.0 Allergy status to penicillin; Z88.6 Allergy status to analgesic agent
CPT/HCPCS: 99223-AI; 99231-AI; 99232-AI; 99233-AI; 99239; A4314; J1815

== ENCOUNTER 2022-11-28 17:22 | Emergency (ER) | payer OTHER ==
[~2022-11-28] VITALS: Ht 177.8 cm; Wt 85.0 kg
[~2022-11-28 17:22] MED LIST changes: +BACTRIM DS 8001 TAB PO; +BETAPACE 80MG80 MG PO; +CARDIZEM 90MG T90 MG PO; +ELIQUIS 5MG PO; +FLOMAX 0.40.4 MG/CAP PO; +IPRATROPIUM BROM3 M1 IH; +LIDODERM 5% PATC1 EA TP; +LIPITOR 40MG TA40 MG PO; +LOPRESSOR 550 MG/TAB PO; +NORCO 325 MG-51 TAB PO; +PREDNISONE20 MG PO; +PROTONIX 40MG T40 MG PO; +TRIAMCINOLONE A15 GM TP; +VALTREX1 GM PO
[2022-11-28 17:45] VITALS: TEMP 98.2
[2022-11-28 19:15] LABS: BASO # 0.1 K/mm3 (0.0-0.2); BASO % 0.9 % (0.0-2.0); EOS # 0.2 K/mm3 (0.0-0.7); EOS % 3.1 % (0.0-4.0); GRAN # 4.8 K/mm3 (1.4-6.5); GRAN % 64.8 % (42.2-75.2); HEMATOCRIT 44.1 % (42.0-52.0); HEMOGLOBIN 14.6 g/dl (13.5-18.0); LYMPH # 1.7 K/mm3 (1.2-3.4); LYMPH % 23.3 % (20.0-51.0); MEAN CELL VOLUME 88 fl (80.0-100.0); MEAN CORPUSCULAR HEMOGLOBIN 29 pg (27-31); MEAN CORPUSCULAR HGB CONC 33 g/dl (33.0-37.0); MEAN PLATELET VOLUME 9.3 fl (7.4-10.4); MONO # 0.6 K/mm3 (0.1-0.6); MONO % 7.6 % (1.7-9.3); PLATELET COUNT 299 K/mm3 (130-400); RED BLOOD COUNT 5.01 M/mm3 (4.20-5.60); REDCELL DISTRIBUTION WIDTH-CV 13.7 % (11.5-14.5)
[2022-11-28 19:34] LABS: ALBUMIN 4.2 gm/dL (3.4-4.8); BILIRUBIN,TOTAL 0.4 mg/dL (0.2-1.2); CALCIUM 11.1 mg/dL (8.4-10.2); CREATININE, serum 1.17 mg/dL (0.72-1.25); POTASSIUM 3.5 mmol/L (3.5-4.5); TOTAL PROTEIN 8.3 gm/dL (6.2-8.1)
[2022-11-28] MEDS ORDERED: CEPHALEXIN500 M1 PO (19:44)
[2022-11-28 19:59] VITALS: BP 150/79; PULSE 74
== END 2022-11-28 19:59 | disposition home or self-care (01) ==
LOC: COL.ER 17:22
PROVIDERS: Family Medicine
DX: K13.0 Diseases of lips (principal); Z86.16 Personal history of COVID-19; Z28.310 Unvaccinated for COVID-19
CPT/HCPCS: J0696; J1100